=== PATIENT | female | born 1990 | race Caucasian/White ===

== ENCOUNTER 2017-02-15 13:40 | Observation (INO) | payer OTHER ==
[~2017-02-15] VITALS: Ht 167.6 cm; Wt 81.6 kg
[2017-02-15] MEDS ORDERED: IV NORMAL SALINE 1000ML BAG 1,000 ML IV SCH (14:16)
[2017-02-15] MEDS ORDERED: FAMOTIDINE 20 MG/2 ML VIAL IVP ONE (14:30)
[2017-02-15] MEDS ORDERED: LIDO:MAALOX:DONNATAL 1:1:1 15 ML SINGLE DOSE SWSW ONE (14:30)
[2017-02-15] MEDS ORDERED: ONDANSETRON PF 4 MG/2 ML VIAL. IV ONE (14:30)
[2017-02-15] MEDS ORDERED: MORPHINE SULFATE 4 MG/ML DISP.SYRIN. IV ONE (14:30)
[2017-02-15 14:33] LABS: BILIRUBIN,URINE NEGATIVE (NEG); GLUCOSE,URINE NEGATIVE (NEG); NITRITE,URINE NEGATIVE (NEG); PH,URINE 6.5; PROTEIN,URINE 30 mg/dL (NEG-TRACE)
[2017-02-15 14:35] LABS: BASO % 0 % (0-3); EOS % 3 % (0-3); HEMATOCRIT 37.7 % (36.0-47.0); HEMOGLOBIN 12.2 g/dL (12.0-15.5); LYMPH # 1.6 x10^3/uL (1.0-4.8); LYMPH % 27 % (24-48); MEAN CORPUSCULAR HEMOGLOBIN 25 pg (25-35); MEAN CORPUSCULAR HGB CONC 32 g/dL (31-37); MEAN CORPUSCULAR VOLUME 76 fL (79-100); MONO % 10 % (0-9); NEUT % 60 % (31-73); PLATELET COUNT 265 x10^3/uL (140-400); RED BLOOD COUNT 4.98 x10^6/uL (3.50-5.40); RED CELL DISTRIBUTION WIDTH 14.3 % (11.5-14.5); WHITE BLOOD COUNT 5.9 x10^3/uL (4.0-11.0)
[2017-02-15 14:36] LABS: BACTERIA,URINE 0 /HPF (0-FEW); RBC,URINE TNTC /HPF (0-2); SQUAMOUS EPITHELIAL CELL,UR MOD /LPF; WBC,URINE 20-40 /HPF (0-4)
[2017-02-15 14:43] LABS: CALCIUM 8.5 mg/dL (8.5-10.1); CREATININE 0.7 mg/dL (0.6-1.0); GFR 101.1; POTASSIUM 3.3 mmol/L (3.5-5.1)
[2017-02-15 14:50] LABS: ALBUMIN 3.1 g/dL (3.4-5.0); ALBUMIN/GLOBULIN RATIO 0.8 (1.0-1.7); TOTAL BILIRUBIN 0.3 mg/dL (0.2-1.0)
[2017-02-15 14:57] LABS: NEG OBC UR NEG; POS OBC UR POS
--- NOTE | 2017-02-15 15:54 | PHYS DOC ---
Past Medical History Past Medical History: Asthma Past Surgical History: Cholecystectomy, Tubal ligation Alcohol Use: Occasionally Drug Use: None Adult General Chief Complaint Chief Complaint: ABDOMINAL PAIN HPI HPI Patient is a 26 year old female who presents with abdominal pain. Patient states that for the past 6 days she has been having LUQ pain. The pain is accompanied by nausea and decreased appetite. The pain is now radiating to her back. No clear inciting or mitigating factors. Patient was seen at [facility] a few days ago for same; at that time she underwent workup including labs and CTA chest (patient had elevated d-dimer) that did not show cause for pain. She has been taking hydrocodone and zofran that she was prescribed with insufficient relief. No other acute complaints. Patient is on her menstrual cycle. Review of Systems Review of Systems Constitutional: Denies fever or chills Eyes: Denies change in visual acuity or eye pain HENT: Denies nasal congestion or sore throat Respiratory: Denies cough or shortness of breath Cardiovascular: Denies chest pain GI: LUQ abdominal pain, nausea, decreased appetite. Denies vomiting, bloody stools or diarrhea : Denies dysuria or hematuria Musculoskeletal: Denies extremity or joint pain Integument: Denies rash or skin lesions Neurologic: Denies headache, focal weakness or sensory changes Current Medications Current Medications Current Medications Medications (Trade) Dose Ordered Sig/Ada Start Time Stop Time Status Last Admin Dose Admin Famotidine (Pepcid) 20 mg 1X ONCE 02/15/17 14:30 02/15/17 14:31 DC 02/15/17 14:37 20 MG Morphine Sulfate 4 mg 1X ONCE 02/15/17 14:30 02/15/17 14:31 DC 02/15/17 14:38 4 MG Multi-Ingredient Mouthwash/Gargle 15 ml 15 ml 1X ONCE 02/15/17 14:30 02/15/17 14:31 DC 02/15/17 14:50 15 ML Ondansetron HCl (Zofran) 4 mg 1X ONCE 02/15/17 14:30 02/15/17 14:31 DC 02/15/17 14:38 4 MG Sodium Chloride (Iv Sodium Chloride 0.9% 1000ml Bag) 1,000 ml @ 1,000 mls/hr Q1H 02/15/17 14:16 02/15/17 15:15 DC 02/15/17 14:36 1,000 MLS/HR Allergies Allergies Allergies Coded Allergies Type Severity Reaction Last Updated Verified tramadol Allergy Unknown Itching 02/15/17 Yes Physical Exam Physical Exam Constitutional: Well developed, well nourished, no acute distress, non-toxic appearance Cardiovascular: Heart rate normal, regular rhythm, no murmur Lungs & Thorax: Bilateral breath sounds clear to auscultation Abdomen: Bowel sounds normal, soft, non-distended, LUQ TTP without guarding or rebound Skin: Warm, dry, no erythema, no rash Back: Minimal L CVA tenderness Extremities: No obvious deformity, no edema Neurologic: Alert and oriented X 3, no gross deficits noted Current Patient Data Vital Signs Vital Signs Date Time Temp Pulse Resp B/P Pulse Ox O2 Delivery O2 Flow Rate FiO2 02/15/17 16:20 85 16 110/71 98 Room Air 02/15/17 13:50 98.1 98.1 Lab Values Laboratory Tests Test 02/15/17 13:50 02/15/17 14:20 Urine Collection Type Unknown Urine Color Yellow Urine Clarity Clear Urine pH 6.5 Urine Specific [place] <=1.005 Urine Protein 30mg/dL (NEG-TRACE) Urine Glucose (UA) Negativemg/dL (NEG) Urine Ketones (Stick) Negativemg/dL (NEG) Urine Blood Large (NEG) Urine Nitrite Negative (NEG) Urine Bilirubin Negative (NEG) Urine Urobilinogen Dipstick 1.0mg/dL (0.2 mg/dL) Urine Leukocyte Esterase Trace (NEG) Urine RBC Tntc/HPF (0-2) Urine WBC 20-40/HPF (0-4) Urine Squamous Epithelial Cells Mod/LPF Urine Bacteria 0/HPF (0-FEW) Urine Mucus Slight/LPF Urine Test Negative (NEG) White Blood Count 5.9x10^3/uL (4.0-11.0) Red Blood Count 4.98x10^6/uL (3.50-5.40) Hemoglobin 12.2g/dL (12.0-15.5) Hematocrit 37.7% (36.0-47.0) Mean Corpuscular Volume 76fL (79-100) L Mean Corpuscular Hemoglobin 25pg (25-35) Mean Corpuscular Hemoglobin Concent 32g/dL (31-37) Red Cell Distribution Width 14.3% (11.5-14.5) Platelet Count 265x10^3/uL (140-400) Neutrophils (%) (Auto) 60% (31-73) Lymphocytes (%) (Auto) 27% (24-48) Monocytes (%) (Auto) 10% (0-9) H Eosinophils (%) (Auto) 3% (0-3) Basophils (%) (Auto) 0% (0-3) Neutrophils # (Auto) 3.5x10^3uL (1.8-7.7) Lymphocytes # (Auto) 1.6x10^3/uL (1.0-4.8) Monocytes # (Auto) 0.6x10^3/uL (0.0-1.1) Eosinophils # (Auto) 0.2x10^3/uL (0.0-0.7) Basophils # (Auto) 0.0x10^3/uL (0.0-0.2) Sodium Level 144mmol/L (136-145) Potassium Level 3.3mmol/L (3.5-5.1) L Chloride Level 105mmol/L (98-107) Carbon Dioxide Level 28mmol/L (21-32) Anion Gap 11 (6-14) Blood Urea Nitrogen 4mg/dL (7-20) L Creatinine 0.7mg/dL (0.6-1.0) Estimated GFR (Cockcroft-Gault) 101.1 BUN/Creatinine Ratio 6 (6-20) Glucose Level 97mg/dL (70-99) Calcium Level 8.5mg/dL (8.5-10.1) Total Bilirubin 0.3mg/dL (0.2-1.0) Aspartate Amino Transferase (AST) 17U/L (15-37) Alanine Aminotransferase (ALT) 20U/L (14-59) Alkaline Phosphatase 74U/L (46-116) Total Protein 7.0g/dL (6.4-8.2) Albumin 3.1g/dL (3.4-5.0) L Albumin/Globulin Ratio 0.8 (1.0-1.7) L Lipase 138U/L (73-393) Laboratory Tests 02/15/17 14:20 Laboratory Tests 02/15/17 14:20 EKG EKG [] Radiology/Procedures Radiology/Procedures CT A/P: IMPRESSION 1. No evidence of urolithiasis or urinary tract obstruction. 2. Mild distention or wall thickening of the appendix, but without periappendiceal inflammation or fluid. Significance is uncertain, particularly considering the symptoms are on the left, but mild or early appendicitis should still be considered. Findings discussed with Dr. Madhuri Callaway at 1730 hours on February 15, 2017. Course & Med Decision Making Course & Med Decision Making Pertinent Labs and Imaging studies reviewed. (See chart for details) Patient is 26 year old female who presents with LUQ pain. Suspect gastritis vs PUD. Labs, UA ordered to evaluate. IV fluid bolus, pain meds, nausea meds, GI cocktail ordered for relief of symptoms. Labs unremarkable. UA with blood ( patient on menstrual cycle) as well as WBCs without bacteria. CT A/P ordered to r/o stone. No stone seen, however I received call from radiologist re: abnormal appearance of appendix. Discussed results with patient, who continues to have LUQ pain. Repeat abdominal examination shows no RLQ tenderness. Relatively low suspicion for acute pathology involving appendix given lack of leukocytosis and lack of tenderness in RLQ, however I did speak with Dr. Reina (diamond die polisher surgeon ) about the abnormal CT scan. I went back to discuss plan with patient; she is uncomfortable going home so we will admit her under the care of Dr. Reina with plan to be NPO at midnight. repeat labs in the morning, and evaluation by Dr. Reina in the morning. Admission orders entered. Dragon Disclaimer Dragon Disclaimer This electronic medical record was generated, in whole or in part, using a voice recognition dictation system. Departure Departure Impression: Primary Impression: LUQ abdominal pain Disposition: ADMITTED INPATIENT Admitting Physician: Other Condition: STABLE Referrals: NO PCP (PCP) MADHURI CALLAWAY MD Feb 15, 2017 15:54
--- NOTE | 2017-02-15 17:36 | RAD ---
PROCEDURE CT of the abdomen and pelvis without contrast HISTORY Left flank pain. Left abdomen pain for 7 days. COMPARISON None TECHNIQUE Standard noncontrast images are obtained. Exposure: One or more of the following individualized dose reduction techniques were utilized for this exam: 1. Automated exposure control. 2. Adjustment of the mA and/or kV according to patient size. 3. Use of iterative reconstruction technique. FINDINGS Lung bases are clear. No evidence of left hydronephrosis or left urolithiasis. No evidence of right hydronephrosis or urolithiasis. Examination of solid viscera, GI tract and vascular structures is compromised by the noncontrast technique. Liver grossly unremarkable. Spleen is enlarged measuring 14 cm. Pancreas unremarkable. No evidence of adrenal mass. Kidneys are unremarkable. Gallbladder surgically absent. No aortic aneurysm No significant lymph node enlargement. No bowel obstruction identified. No evidence of pericolonic inflammation. The appendix is mildly distended and either thick-walled or fluid-filled. No gas identified within the lumen. Appendix measures about 9 millimeters transverse. However there is no evidence of periappendiceal inflammatory stranding or fluid. No ascites. Urinary bladder is collapsed. IMPRESSION 1. No evidence of urolithiasis or urinary tract obstruction. 2. Mild distention or wall thickening of the appendix, but without periappendiceal inflammation or fluid. Significance is uncertain, particularly considering the symptoms are on the left, but mild or early appendicitis should still be considered. Findings discussed with Dr. Oswaldo Londono at 1730 hours on February 15, 2017. Electronically signed by: Bakari Quiles MD (Feb 15, 2017 17:35:00)
[2017-02-15] MEDS ORDERED: ACETAMINOPHEN 325 MG TABLET. PO PRN (18:15)
[2017-02-15] MEDS: IV NORMAL SALINE 1000ML BAG 1,000 ML IV SCH ×2 (18:30→19:58)
[2017-02-15] MEDS: ONDANSETRON PF 4 MG/2 ML VIAL. IV PRN (18:30)
[2017-02-15] MEDS: MORPHINE SULFATE 2 MG/ML DISP.SYRIN. IV PRN ×2 (18:33→20:58)
[2017-02-15 19:40] VITALS: BP 109/61
[2017-02-15 23:00] VITALS: BP 100/60
[2017-02-16] VITALS (10 sets, daily range): BP systolic 102–109; BP diastolic 57–73
[2017-02-16] MEDS: ONDANSETRON PF 4 MG/2 ML VIAL. IV PRN ×2 (03:09→08:39)
[2017-02-16] MEDS: IV NORMAL SALINE 1000ML BAG 1,000 ML IV SCH (03:12)
[2017-02-16 05:35] LABS: BASO % 0 % (0-3); EOS % 4 % (0-3); HEMATOCRIT 31.1 % (36.0-47.0); HEMOGLOBIN 10.1 g/dL (12.0-15.5); LYMPH # 1.4 x10^3/uL (1.0-4.8); LYMPH % 35 % (24-48); MEAN CORPUSCULAR HEMOGLOBIN 25 pg (25-35); MEAN CORPUSCULAR HGB CONC 32 g/dL (31-37); MEAN CORPUSCULAR VOLUME 76 fL (79-100); MONO % 11 % (0-9); NEUT % 50 % (31-73); PLATELET COUNT 195 x10^3/uL (140-400); RED BLOOD COUNT 4.09 x10^6/uL (3.50-5.40); RED CELL DISTRIBUTION WIDTH 14.1 % (11.5-14.5); WHITE BLOOD COUNT 4.1 x10^3/uL (4.0-11.0)
[2017-02-16 05:50] LABS: ALBUMIN 2.4 g/dL (3.4-5.0); ALBUMIN/GLOBULIN RATIO 0.8 (1.0-1.7); CALCIUM 7.5 mg/dL (8.5-10.1); CREATININE 0.7 mg/dL (0.6-1.0); GFR 101.1; TOTAL BILIRUBIN 0.3 mg/dL (0.2-1.0); TOTAL PROTEIN 5.5 g/dL (6.4-8.2)
--- NOTE | 2017-02-16 08:12 | PDOC1 ---
MIRTHA VILLA POWER LINEMAN 02/16/17 0812: History and Physical Date of Admission Date of Admission DATE: 02/16/17 TIME: 08:04 Identification/Chief Complaint Chief Complaint LUQ abdominal pain Problems: Source Source: Chart review, Patient History of Present Illness History of Present Illness Reports a 6 day history of LUQ pain, associated nausea, loss of appetite. Pain is constant does not worsen with movement. Can not identify any aggravating or alleviating factors. Never had pain like this before. Last BM , was normal. Was seen in ER at [facility] few days ago with elevated D dimer, however work up was negative and discharged home Past Medical History Pulmonary: Asthma Past Surgical History Past Surgical History: Cholecystectomy Family History Family History: Depression, Hypertension Social History Smoke: No ALCOHOL: occassional Drugs: None Current Problem List Problem List Problems Medical Problems: (1) LUQ abdominal pain Status: Acute Problems: Current Medications Current Medications Current Medications Multi-Ingredient Mouthwash/Gargle 15 ml 15 ml 1X ONCE SWSW Last administered on 02/15/17 14:50; Start 02/15/17 at 14:30; Stop 02/15/17 at 14:31; Status DC Sodium Chloride (Iv Sodium Chloride 0.9% 1000ml Bag) 1,000 ml @ 1,000 mls/hr Q1H IV Last administered on 02/15/17 14:36; Start 02/15/17 at 14:16; Stop at 15:15; Status DC Ondansetron HCl (Zofran) 4 mg 1X ONCE IV Last administered on 02/15/17 14:38 ; Start 02/15/17 at 14:30; Stop 02/15/17 at 14:31; Status DC Famotidine (Pepcid) 20 mg 1X ONCE IVP Last administered on 02/15/17 14:37; Start 02/15/17 at 14:30; Stop 02/15/17 at 14:31; Status DC Morphine Sulfate 4 mg 1X ONCE IV Last administered on 02/15/17 14:38; Start 02/15/17 at 14:30; Stop 02/15/17 at 14:31; Status DC Ondansetron HCl (Zofran) 4 mg PRN Q8HRS PRN IV NAUSEA/VOMITING Last administered on 02/16/17 03:09; Start 02/15/17 at 18:15; Stop 02/16/17 at 18:14 Morphine Sulfate 2 mg 2 mg PRN Q2HR PRN IV PAIN Last administered on 02/15/17 20:58; Start 02/15/17 at 18:15; Stop 02/16/17 at 18:14 Sodium Chloride (Iv Sodium Chloride 0.9% 1000ml Bag) 1,000 ml @ 125 mls/hr Q8H IV Last administered on 02/16/17 03:12; Start 02/15/17 at 18:08; Stop at 18:07 Acetaminophen (Tylenol) 650 mg PRN Q4HRS PRN PO FEVER; Start 02/15/17 at 18:15 ; Stop 02/16/17 at 18:14 Allergies Allergies: Coded Allergies: tramadol (Verified Allergy, Intermediate, Itching, 02/16/17) ROS General: YES: Chills, No: Other (fevers) PSYCHOLOGICAL ROS: No: Anxiety, Depression Eyes: No Blurry vision, No Double vision HEENT: No: Heacaches, Sore Throat Hematological and Lymphatic: No: Bleeding Problems, Blood Clots Respiratory: No: Cough, Shortness of breath Cardiovascular: No Chest Pain Gastrointestinal: Yes Other (see hpi) Genitourinary: No Dysuria, No Hematuria Musculoskeletal: No Joint Pain, No Muscle Pain Neurological: No Impaired Coord/balance, No Numbness/Tingling Skin: No Pruritus, No Rash Physical Exam General: Alert, Oriented X3, Cooperative, No acute distress HEENT: PERRLA Lungs: Clear to auscultation, Normal air movement Heart: S1S2, RRR Abdomen: Soft, Other (tenderness to LUQ and RLQ, no rebound tenderness ) Extremities: No clubbing, No cyanosis Skin: No rashes, No breakdown Neuro: Normal speech, Cranial nerves 3-12 NL Psych/Mental Status: Mental status NL, Mood NL Vitals Vitals Vital Signs Date Time Temp Pulse Resp B/P Pulse Ox O2 Delivery O2 Flow Rate FiO2 02/16/17 03:00 97.3 88 18 103/57 97 Room Air 97.3 Labs Labs Laboratory Tests Test 02/15/17 13:50 02/15/17 14:20 02/16/17 04:38 Urine Collection Type Unknown Urine Color Yellow Urine Clarity Clear Urine pH 6.5 Urine Specific [place] <=1.005 Urine Protein 30mg/dL (NEG-TRACE) Urine Glucose (UA) Negativemg/dL (NEG) Urine Ketones (Stick) Negativemg/dL (NEG) Urine Blood Large (NEG) Urine Nitrite Negative (NEG) Urine Bilirubin Negative (NEG) Urine Urobilinogen Dipstick 1.0mg/dL (0.2 mg/dL) Urine Leukocyte Esterase Trace (NEG) Urine RBC Tntc/HPF (0-2) Urine WBC 20-40/HPF (0-4) Urine Squamous Epithelial Cells Mod/LPF Urine Bacteria 0/HPF (0-FEW) Urine Mucus Slight/LPF Urine Test Negative (NEG) White Blood Count 5.9x10^3/uL (4.0-11.0) 4.1x10^3/uL (4.0-11.0) Red Blood Count 4.98x10^6/uL (3.50-5.40) 4.09x10^6/uL (3.50-5.40) Hemoglobin 12.2g/dL (12.0-15.5) 10.1g/dL (12.0-15.5) Hematocrit 37.7% (36.0-47.0) 31.1% (36.0-47.0) Mean Corpuscular Volume 76fL (79-100) 76fL (79-100) Mean Corpuscular Hemoglobin 25pg (25-35) 25pg (25-35) Mean Corpuscular Hemoglobin Concent 32g/dL (31-37) 32g/dL (31-37) Red Cell Distribution Width 14.3% (11.5-14.5) 14.1% (11.5-14.5) Platelet Count 265x10^3/uL (140-400) 195x10^3/uL (140-400) Neutrophils (%) (Auto) 60% (31-73) 50% (31-73) Lymphocytes (%) (Auto) 27% (24-48) 35% (24-48) Monocytes (%) (Auto) 10% (0-9) 11% (0-9) Eosinophils (%) (Auto) 3% (0-3) 4% (0-3) Basophils (%) (Auto) 0% (0-3) 0% (0-3) Neutrophils # (Auto) 3.5x10^3uL (1.8-7.7) 2.1x10^3uL (1.8-7.7) Lymphocytes # (Auto) 1.6x10^3/uL (1.0-4.8) 1.4x10^3/uL (1.0-4.8) Monocytes # (Auto) 0.6x10^3/uL (0.0-1.1) 0.5x10^3/uL (0.0-1.1) Eosinophils # (Auto) 0.2x10^3/uL (0.0-0.7) 0.1x10^3/uL (0.0-0.7) Basophils # (Auto) 0.0x10^3/uL (0.0-0.2) 0.0x10^3/uL (0.0-0.2) Sodium Level 144mmol/L (136-145) 145mmol/L (136-145) Potassium Level 3.3mmol/L (3.5-5.1) 3.0mmol/L (3.5-5.1) Chloride Level 105mmol/L (98-107) 108mmol/L (98-107) Carbon Dioxide Level 28mmol/L (21-32) 26mmol/L (21-32) Anion Gap 11 (6-14) 11 (6-14) Blood Urea Nitrogen 4mg/dL (7-20) 4mg/dL (7-20) Creatinine 0.7mg/dL (0.6-1.0) 0.7mg/dL (0.6-1.0) Estimated GFR (Cockcroft-Gault) 101.1 101.1 BUN/Creatinine Ratio 6 (6-20) 6 (6-20) Glucose Level 97mg/dL (70-99) 95mg/dL (70-99) Calcium Level 8.5mg/dL (8.5-10.1) 7.5mg/dL (8.5-10.1) Total Bilirubin 0.3mg/dL (0.2-1.0) 0.3mg/dL (0.2-1.0) Aspartate Amino Transf (AST/SGOT) 17U/L (15-37) 45U/L (15-37) Alanine Aminotransferase (ALT/SGPT) 20U/L (14-59) 48U/L (14-59) Alkaline Phosphatase 74U/L (46-116) 75U/L (46-116) Total Protein 7.0g/dL (6.4-8.2) 5.5g/dL (6.4-8.2) Albumin 3.1g/dL (3.4-5.0) 2.4g/dL (3.4-5.0) Albumin/Globulin Ratio 0.8 (1.0-1.7) 0.8 (1.0-1.7) Lipase 138U/L (73-393) Laboratory Tests Test 02/15/17 13:50 02/15/17 14:20 02/16/17 04:38 Urine Collection Type Unknown Urine Color Yellow Urine Clarity Clear Urine pH 6.5 Urine Specific [place] <=1.005 Urine Protein 30mg/dL (NEG-TRACE) Urine Glucose (UA) Negativemg/dL (NEG) Urine Ketones (Stick) Negativemg/dL (NEG) Urine Blood Large (NEG) Urine Nitrite Negative (NEG) Urine Bilirubin Negative (NEG) Urine Urobilinogen Dipstick 1.0mg/dL (0.2 mg/dL) Urine Leukocyte Esterase Trace (NEG) Urine RBC Tntc/HPF (0-2) Urine WBC 20-40/HPF (0-4) Urine Squamous Epithelial Cells Mod/LPF Urine Bacteria 0/HPF (0-FEW) Urine Mucus Slight/LPF Urine Test Negative (NEG) White Blood Count 5.9x10^3/uL (4.0-11.0) 4.1x10^3/uL (4.0-11.0) Red Blood Count 4.98x10^6/uL (3.50-5.40) 4.09x10^6/uL (3.50-5.40) Hemoglobin 12.2g/dL (12.0-15.5) 10.1g/dL (12.0-15.5) Hematocrit 37.7% (36.0-47.0) 31.1% (36.0-47.0) Mean Corpuscular Volume 76fL (79-100) 76fL (79-100) Mean Corpuscular Hemoglobin 25pg (25-35) 25pg (25-35) Mean Corpuscular Hemoglobin Concent 32g/dL (31-37) 32g/dL (31-37) Red Cell Distribution Width 14.3% (11.5-14.5) 14.1% (11.5-14.5) Platelet Count 265x10^3/uL (140-400) 195x10^3/uL (140-400) Neutrophils (%) (Auto) 60% (31-73) 50% (31-73) Lymphocytes (%) (Auto) 27% (24-48) 35% (24-48) Monocytes (%) (Auto) 10% (0-9) 11% (0-9) Eosinophils (%) (Auto) 3% (0-3) 4% (0-3) Basophils (%) (Auto) 0% (0-3) 0% (0-3) Neutrophils # (Auto) 3.5x10^3uL (1.8-7.7) 2.1x10^3uL (1.8-7.7) Lymphocytes # (Auto) 1.6x10^3/uL (1.0-4.8) 1.4x10^3/uL (1.0-4.8) Monocytes # (Auto) 0.6x10^3/uL (0.0-1.1) 0.5x10^3/uL (0.0-1.1) Eosinophils # (Auto) 0.2x10^3/uL (0.0-0.7) 0.1x10^3/uL (0.0-0.7) Basophils # (Auto) 0.0x10^3/uL (0.0-0.2) 0.0x10^3/uL (0.0-0.2) Sodium Level 144mmol/L (136-145) 145mmol/L (136-145) Potassium Level 3.3mmol/L (3.5-5.1) 3.0mmol/L (3.5-5.1) Chloride Level 105mmol/L (98-107) 108mmol/L (98-107) Carbon Dioxide Level 28mmol/L (21-32) 26mmol/L (21-32) Anion Gap 11 (6-14) 11 (6-14) Blood Urea Nitrogen 4mg/dL (7-20) 4mg/dL (7-20) Creatinine 0.7mg/dL (0.6-1.0) 0.7mg/dL (0.6-1.0) Estimated GFR (Cockcroft-Gault) 101.1 101.1 BUN/Creatinine Ratio 6 (6-20) 6 (6-20) Glucose Level 97mg/dL (70-99) 95mg/dL (70-99) Calcium Level 8.5mg/dL (8.5-10.1) 7.5mg/dL (8.5-10.1) Total Bilirubin 0.3mg/dL (0.2-1.0) 0.3mg/dL (0.2-1.0) Aspartate Amino Transf (AST/SGOT) 17U/L (15-37) 45U/L (15-37) Alanine Aminotransferase (ALT/SGPT) 20U/L (14-59) 48U/L (14-59) Alkaline Phosphatase 74U/L (46-116) 75U/L (46-116) Total Protein 7.0g/dL (6.4-8.2) 5.5g/dL (6.4-8.2) Albumin 3.1g/dL (3.4-5.0) 2.4g/dL (3.4-5.0) Albumin/Globulin Ratio 0.8 (1.0-1.7) 0.8 (1.0-1.7) Lipase 138U/L (73-393) Images Images CT without contrast viewed VTE Prophylaxis Ordered VTE Prophylaxis Devices: Yes VTE Pharmacological Prophylaxi: Contraindicated Assessment/Plan Assessment/Plan LUQ pain, RLQ--CT concern for early acute appendicitis, however symptoms have been ongoing for a week, wbc normal hypokalemia--ordered 20 meq KCL IV replacement NPO will review with YVROSE Jimenez MD 02/16/17 1124: History and Physical Allergies Allergies: Coded Allergies: tramadol (Verified Allergy, Intermediate, Itching, 02/16/17) Assessment/Plan Assessment/Plan pt seen, interviewed and examined I explained to her that removing her appendix may not resolve all her abdominal complaints. Risks, including but not limited to bleeding, infection, injury to bowel, bladder, pelvic organs, possible need for an "open" procedure were all discussed. She would like to proceed. MIRTHA VILLA POWER LINEMAN Feb 16, 2017 08:12 YVROSE MALAGON MD Feb 16, 2017 11:24
[2017-02-16] MEDS ORDERED: PROMETHAZINE 25 MG SUPP.RECT. PR PRN (08:30)
[2017-02-16] MEDS: POTASSIUM CHLORIDE 10MEQ 100 ML IV SCH ×2 (08:39→09:15)
[2017-02-16] MEDS: MORPHINE SULFATE 2 MG/ML DISP.SYRIN. IV PRN (10:21)
[2017-02-16] MEDS ORDERED: CEFOXITIN SODIUM 2 GM in IV NORMAL SALINE 100ML 100 ML IV ONE (11:30)
[2017-02-16] MEDS ORDERED: IV RINGERS,LACTATED 1000ML 1,000 ML IV SCH (11:34)
[2017-02-16] MEDS ORDERED: ONDANSETRON PF 4 MG/2 ML VIAL. IV PRN ×2 (11:45→17:45)
[2017-02-16] MEDS ORDERED: LIDOCAINE 1% 1 ML SYRINGE. ID PRN (11:45)
[2017-02-16] MEDS ORDERED: FENTANYL PF 100 MCG/2 ML VIAL. IV PRN (11:45)
[2017-02-16] MEDS ORDERED: PROCHLORPERAZINE 10 MG/2 ML VIAL. IV PRN (11:45)
[2017-02-16] MEDS ORDERED: GLYCOPYRROLATE 1 MG/5 ML VIAL. ONE (13:39)
[2017-02-16] MEDS ORDERED: DESFLURANE 61 TO 120 MINUTES IH ONE (13:39)
[2017-02-16] MEDS ORDERED: MIDAZOLAM HCL/PF 2 MG/2 ML VIAL. ONE (13:39)
[2017-02-16] MEDS ORDERED: FENTANYL PF 100 MCG/2 ML VIAL. ONE (13:39)
[2017-02-16] MEDS ORDERED: ROCURONIUM 50 MG/5 ML VIAL. ONE (13:40)
[2017-02-16] MEDS ORDERED: NEOSTIGMINE METHYLSULFATE 5 MG/5 ML SYRINGE. ONE (13:40)
[2017-02-16] MEDS ORDERED: SUCCINYLCHOLINE 200 MG/10 ML VIAL. ONE (13:40)
[2017-02-16] MEDS ORDERED: LIDOCAINE 2% 100 MG/5 ML SYRINGE. ONE (13:41)
[2017-02-16] MEDS ORDERED: DEXAMETHASONE SOD PHOS 20 MG/5 ML VIAL. ONE (13:41)
[2017-02-16] MEDS ORDERED: PROPOFOL 20 ML IV ONE (13:41)
[2017-02-16] MEDS ORDERED: ONDANSETRON PF 4 MG/2 ML VIAL. ONE (13:42)
[2017-02-16] MEDS ORDERED: KETOROLAC 30 MG/ML INJ FOR OR. INJ ONE (13:42)
[2017-02-16] MEDS ORDERED: CEFOXITIN 2GM IVPB FOR OMNI 100 ML IV ONE (14:28)
[2017-02-16] MEDS ORDERED: FAMOTIDINE 20 MG/2 ML VIAL ONE (16:37)
[2017-02-16] MEDS ORDERED: ACETAMINOPHEN INTRAVENOUS 100 ML IV ONE (17:32)
[2017-02-16] MEDS ORDERED: POTASSIUM CL 20MEQ-0.45% NACL 1,000 ML IV SCH (17:38)
--- NOTE | 2017-02-16 17:42 | PDOC ---
BRIEF OPERATIVE NOTE Date: Feb 16, 2017 Pre-Op Diagnosis acute appendicitis Post-Op Diagnosis same Procedure Performed l/s appendectomy Surgeon Nuno Anesthesia Type: General Blood Loss 10cc IV Fluid 800cc Urine Output 100cc Specimens Obtained appendix Findings acute appendicitis Complications none YVROSE MALAGON MD Feb 16, 2017 5:42 pm
[2017-02-16] MEDS ORDERED: 0.9 % SODIUM CHLORIDE 10 ML DISP.SYRIN. IV PRN (17:45)
[2017-02-16] MEDS ORDERED: DEXTROSE 50% 25 GM / 50ML DISP.SYRIN. IV PRN (17:45)
[2017-02-16] MEDS ORDERED: HYDROMORPHONE 2 MG/ML VIAL. IV PRN (17:45)
[2017-02-16] MEDS: FENTANYL PF 100 MCG/2 ML VIAL. IV PRN ×3 (17:47→18:38)
[2017-02-16] MEDS ORDERED: ENOXAPARIN 40 MG/0.4 ML SYRINGE. SQ SCH (18:00)
[2017-02-16] MEDS: DIPHENHYDRAMINE 50 MG/ML VIAL. IV PRN (18:47)
--- NOTE | 2017-02-16 19:52 | OP ---
DATE OF SURGERY: 02/16/2017 PREOPERATIVE DIAGNOSIS: Acute appendicitis. POSTOPERATIVE DIAGNOSIS: Acute appendicitis. PROCEDURE: Laparoscopic appendectomy. SURGEON: Yvrose Malagon M.D. ANESTHESIA: General endotracheal. ESTIMATED BLOOD LOSS: 10 mL. IV FLUID: 800 mL. URINE OUTPUT: 100 mL. INDICATIONS: The patient is a 26-year-old with abdominal pain and a CT suggesting changes in her appendix. She is brought for appendectomy. OPERATIVE FINDINGS: She did indeed have, what appeared to be, an elderly acute appendicitis without rupture. Bilateral ovarian cystic changes were present, right greater than left. Gallbladder was surgically absent. The spleen was somewhat prominent. No other abnormalities were seen. DESCRIPTION OF PROCEDURE: The patient brought to the operating suite, given a general endotracheal anesthetic, Jiménez catheter placement and drainage. The abdomen prepped and draped in usual sterile fashion. An infraumbilical incision was made and a 5-mm Visiport used to gain access into the abdominal cavity, taking care to avoid injury to abdominal contents. Pneumoperitoneum was established. Camera inserted and inspection carried out with results as noted above. With the table rolled to the left in slight Trendelenburg, the suprapubic and left lower quadrant ports were placed under direct vision. The umbilical port was converted to 12 mm for instrumentation. The appendix was grasped through the suprapubic port and a small rent created at the base of the appendix to allow passage of the Endo MARINA. The appendiceal stump was amputated with a tissue load. Medium large clip used to augment hemostasis. The mesoappendix was then divided with a vascular load of the Endo MARINA. Again, medium large clips were used to augment hemostasis. Intra-abdominal pressure decreased to 6 cm of water. No bleeding from the appendiceal stump or from the mesoappendix was seen. Table returned to level. Appendix delivered through the umbilical incision. Umbilical incision closed with interrupted 0 Vicryl suture. Again, a 6 cm of water. No bleeding from the umbilical closure or from the left lower quadrant port site after its removal. Abdomen decompressed, camera slowly removed, no bleeding seen. Skin incisions closed with interrupted 5-0 nylon sutures. Sterile dressings applied. Jiménez catheter removed. The patient was awakened from her anesthetic and taken to the recovery room in satisfactory condition. YVROSE MALAGON MD DR: Marla JOB#: [id number] / [id number]
[2017-02-16] MEDS: DOCUSATE SODIUM 100 MG CAPSULE. PO SCH (21:52)
[2017-02-16] MEDS: OXYCODONE/APAP 5/325 TABLET. PO PRN ×2 (21:52→22:40)
[2017-02-17 03:07] VITALS: BP 103/62
[2017-02-17] MEDS: OXYCODONE/APAP 5/325 TABLET. PO PRN ×4 (06:17→20:25)
[2017-02-17 07:00] VITALS: BP 97/62
[2017-02-17] MEDS: ONDANSETRON PF 4 MG/2 ML VIAL. IV PRN ×2 (08:10→15:17)
[2017-02-17] MEDS: DOCUSATE SODIUM 100 MG CAPSULE. PO SCH ×2 (08:25→20:25)
[2017-02-17] MEDS: ENOXAPARIN 40 MG/0.4 ML SYRINGE. SQ SCH (08:26)
[2017-02-17] MEDS: DIPHENHYDRAMINE 50 MG/ML VIAL. IV PRN (09:49)
[2017-02-17 11:00] VITALS: BP 103/70
--- NOTE | 2017-02-17 11:32 | PDOC ---
SURGICAL PROGRESS NOTE Subjective some nausea, lightheaded incisional pain voiding ok Vital Signs Vital Signs Date Time Temp Pulse Resp B/P Pulse Ox O2 Delivery O2 Flow Rate FiO2 02/17/17 11:00 97.9 63 18 103/70 96 Room Air 97.9 02/16/17 18:03 8.0 I&O Intake and Output 02/17/17 07:00 Intake Total 1625 ml Output Total 1761 ml Balance -136 ml Intake Oral 425 ml IV Total 1200 ml Output Urine Total 1751 ml Estimated Blood Loss 10 ml # Voids 2 General: Alert, Oriented X3, Cooperative, No acute distress Abdomen: Soft, Other (incisoinal pain, lap dressings dry ) Labs Laboratory Tests Test 02/15/17 13:50 02/15/17 14:20 02/16/17 04:38 Urine Collection Type Unknown Urine Color Yellow Urine Clarity Clear Urine pH 6.5 Urine Specific [place] <=1.005 Urine Protein 30mg/dL (NEG-TRACE) Urine Glucose (UA) Negativemg/dL (NEG) Urine Ketones (Stick) Negativemg/dL (NEG) Urine Blood Large (NEG) Urine Nitrite Negative (NEG) Urine Bilirubin Negative (NEG) Urine Urobilinogen Dipstick 1.0mg/dL (0.2 mg/dL) Urine Leukocyte Esterase Trace (NEG) Urine RBC Tntc/HPF (0-2) Urine WBC 20-40/HPF (0-4) Urine Squamous Epithelial Cells Mod/LPF Urine Bacteria 0/HPF (0-FEW) Urine Mucus Slight/LPF Urine Test Negative (NEG) White Blood Count 5.9x10^3/uL (4.0-11.0) 4.1x10^3/uL (4.0-11.0) Red Blood Count 4.98x10^6/uL (3.50-5.40) 4.09x10^6/uL (3.50-5.40) Hemoglobin 12.2g/dL (12.0-15.5) 10.1g/dL (12.0-15.5) Hematocrit 37.7% (36.0-47.0) 31.1% (36.0-47.0) Mean Corpuscular Volume 76fL (79-100) 76fL (79-100) Mean Corpuscular Hemoglobin 25pg (25-35) 25pg (25-35) Mean Corpuscular Hemoglobin Concent 32g/dL (31-37) 32g/dL (31-37) Red Cell Distribution Width 14.3% (11.5-14.5) 14.1% (11.5-14.5) Platelet Count 265x10^3/uL (140-400) 195x10^3/uL (140-400) Neutrophils (%) (Auto) 60% (31-73) 50% (31-73) Lymphocytes (%) (Auto) 27% (24-48) 35% (24-48) Monocytes (%) (Auto) 10% (0-9) 11% (0-9) Eosinophils (%) (Auto) 3% (0-3) 4% (0-3) Basophils (%) (Auto) 0% (0-3) 0% (0-3) Neutrophils # (Auto) 3.5x10^3uL (1.8-7.7) 2.1x10^3uL (1.8-7.7) Lymphocytes # (Auto) 1.6x10^3/uL (1.0-4.8) 1.4x10^3/uL (1.0-4.8) Monocytes # (Auto) 0.6x10^3/uL (0.0-1.1) 0.5x10^3/uL (0.0-1.1) Eosinophils # (Auto) 0.2x10^3/uL (0.0-0.7) 0.1x10^3/uL (0.0-0.7) Basophils # (Auto) 0.0x10^3/uL (0.0-0.2) 0.0x10^3/uL (0.0-0.2) Sodium Level 144mmol/L (136-145) 145mmol/L (136-145) Potassium Level 3.3mmol/L (3.5-5.1) 3.0mmol/L (3.5-5.1) Chloride Level 105mmol/L (98-107) 108mmol/L (98-107) Carbon Dioxide Level 28mmol/L (21-32) 26mmol/L (21-32) Anion Gap 11 (6-14) 11 (6-14) Blood Urea Nitrogen 4mg/dL (7-20) 4mg/dL (7-20) Creatinine 0.7mg/dL (0.6-1.0) 0.7mg/dL (0.6-1.0) Estimated GFR (Cockcroft-Gault) 101.1 101.1 BUN/Creatinine Ratio 6 (6-20) 6 (6-20) Glucose Level 97mg/dL (70-99) 95mg/dL (70-99) Calcium Level 8.5mg/dL (8.5-10.1) 7.5mg/dL (8.5-10.1) Total Bilirubin 0.3mg/dL (0.2-1.0) 0.3mg/dL (0.2-1.0) Aspartate Amino Transf (AST/SGOT) 17U/L (15-37) 45U/L (15-37) Alanine Aminotransferase (ALT/SGPT) 20U/L (14-59) 48U/L (14-59) Alkaline Phosphatase 74U/L (46-116) 75U/L (46-116) Total Protein 7.0g/dL (6.4-8.2) 5.5g/dL (6.4-8.2) Albumin 3.1g/dL (3.4-5.0) 2.4g/dL (3.4-5.0) Albumin/Globulin Ratio 0.8 (1.0-1.7) 0.8 (1.0-1.7) Lipase 138U/L (73-393) Problem List Problems Medical Problems: (1) Acute appendicitis Status: Acute (2) LUQ abdominal pain Status: Acute Assessment/Plan s/p lap appy dc home when ambulating, tolerating diet, pain controlled on oral meds 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
[2017-02-17 15:00] VITALS: BP 104/57
[2017-02-17 16:31] LABS: HEMOGLOBIN 11.2 g/dL (12.0-15.5); RED BLOOD COUNT 4.53 x10^6/uL (3.50-5.40); RED CELL DISTRIBUTION WIDTH 14.1 % (11.5-14.5); WHITE BLOOD COUNT 8.3 x10^3/uL (4.0-11.0)
[2017-02-17 19:48] VITALS: BP 101/61
[2017-02-17] MEDS: DIPHENHYDRAMINE HCL 25 MG CAPSULE PO PRN (20:25)
[2017-02-17] MEDS ORDERED: KETOROLAC TROMETHAMINE 30 MG/ML INJ. IV ONE (23:00)
[2017-02-17 23:04] VITALS: BP 104/60
[2017-02-18] VITALS (10 sets, daily range): BP systolic 89–112; BP diastolic 49–78
[2017-02-18] MEDS: DIPHENHYDRAMINE HCL 25 MG CAPSULE PO PRN ×2 (06:07→20:56)
[2017-02-18] MEDS: OXYCODONE/APAP 5/325 TABLET. PO PRN ×4 (06:08→23:21)
[2017-02-18] MEDS: ONDANSETRON PF 4 MG/2 ML VIAL. IV PRN (08:52)
[2017-02-18] MEDS: DOCUSATE SODIUM 100 MG CAPSULE. PO SCH ×2 (08:52→20:56)
[2017-02-18] MEDS: ENOXAPARIN 40 MG/0.4 ML SYRINGE. SQ SCH (08:53)
--- NOTE | 2017-02-18 11:50 | PDOC ---
SURGICAL PROGRESS NOTE Subjective nausea and dizziness only ambulating to bathroom no appetite Vital Signs Vital Signs Date Time Temp Pulse Resp B/P Pulse Ox O2 Delivery O2 Flow Rate FiO2 02/18/17 10:42 98.2 64 18 91/51 99 Room Air 98.2 02/17/17 13:00 8.0 I&O Intake and Output 02/18/17 07:00 Output Total 301 ml Balance -301 ml Output Urine Total 301 ml # Voids 2 General: Alert, Oriented X3, Cooperative, No acute distress Abdomen: Soft, Other (incisional TTP, lap sites c/d/i) Labs Laboratory Tests Test 02/17/17 16:15 White Blood Count 8.3x10^3/uL (4.0-11.0) Red Blood Count 4.53x10^6/uL (3.50-5.40) Hemoglobin 11.2g/dL (12.0-15.5) Hematocrit 34.0% (36.0-47.0) Mean Corpuscular Volume 75fL (79-100) Mean Corpuscular Hemoglobin 25pg (25-35) Mean Corpuscular Hemoglobin Concent 33g/dL (31-37) Red Cell Distribution Width 14.1% (11.5-14.5) Platelet Count 279x10^3/uL (140-400) Laboratory Tests Test 02/17/17 16:15 White Blood Count 8.3x10^3/uL (4.0-11.0) Red Blood Count 4.53x10^6/uL (3.50-5.40) Hemoglobin 11.2g/dL (12.0-15.5) Hematocrit 34.0% (36.0-47.0) Mean Corpuscular Volume 75fL (79-100) Mean Corpuscular Hemoglobin 25pg (25-35) Mean Corpuscular Hemoglobin Concent 33g/dL (31-37) Red Cell Distribution Width 14.1% (11.5-14.5) Platelet Count 279x10^3/uL (140-400) Problem List Problems Medical Problems: (1) Acute appendicitis Status: Acute (2) LUQ abdominal pain Status: Acute Assessment/Plan s/p lap appy h/h stable ambulate dc iv pain meds home if improved this afternoon 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
[2017-02-18] MEDS ORDERED: ONDA8TAB12 PO (11:53)
[2017-02-18] MEDS ORDERED: OXYC1TAB7 PO (11:53)
[2017-02-18] MEDS ORDERED: DOCU100C5 PO (11:53)
[2017-02-18] MEDS: ONDANSETRON ODT 4 MG TAB.RAPDIS. PO PRN (12:07)
--- NOTE | 2017-02-18 17:19 | PDOC2 ---
CONSULT Date of Consult Date of Consult DATE: 02/18/17 TIME: 17:16 Reason for Consult Reason for Consult: IM management Referring Physician Referring Physician: dr. Reina Identification/Chief Complaint Chief Complaint dizzy Source Source: Chart review, Patient History of Present Illness Reason for Visit: 26yo F, healthy, came to [place] 2 days ago for abd pain, N/V, no appetite. She underwent lap appendectomy on 02/16. She has mild diffuse abd pain, has flatus, no BM post op. cont having Nausea, with some lightheaded. K 3.0. Past Medical History Pulmonary: Asthma Past Surgical History Past Surgical History: Cholecystectomy Family History Family History: Depression, Hypertension Social History No ALCOHOL: occassional Drugs: None Current Problem List Problem List Problems Medical Problems: (1) Acute appendicitis Status: Acute (2) LUQ abdominal pain Status: Acute Current Medications Current Medications Current Medications Multi-Ingredient Mouthwash/Gargle 15 ml 15 ml 1X ONCE SWSW Last administered on 02/15/17 14:50; Start 02/15/17 at 14:30; Stop 02/15/17 at 14:31; Status DC Sodium Chloride (Iv Sodium Chloride 0.9% 1000ml Bag) 1,000 ml @ 1,000 mls/hr Q1H IV Last administered on 02/15/17 14:36; Start 02/15/17 at 14:16; Stop at 15:15; Status DC Ondansetron HCl (Zofran) 4 mg 1X ONCE IV Last administered on 02/15/17 14:38 ; Start 02/15/17 at 14:30; Stop 02/15/17 at 14:31; Status DC Famotidine (Pepcid) 20 mg 1X ONCE IVP Last administered on 02/15/17 14:37; Start 02/15/17 at 14:30; Stop 02/15/17 at 14:31; Status DC Morphine Sulfate 4 mg 1X ONCE IV Last administered on 02/15/17 14:38; Start 02/15/17 at 14:30; Stop 02/15/17 at 14:31; Status DC Ondansetron HCl (Zofran) 4 mg PRN Q8HRS PRN IV NAUSEA/VOMITING Last administered on 02/16/17 03:09; Start 02/15/17 at 18:15; Stop 02/16/17 at 08:23 ; Status DC Morphine Sulfate 2 mg 2 mg PRN Q2HR PRN IV PAIN Last administered on 02/16/17 10:21; Start 02/15/17 at 18:15; Stop 02/16/17 at 18:14; Status DC Sodium Chloride (Iv Sodium Chloride 0.9% 1000ml Bag) 1,000 ml @ 125 mls/hr Q8H IV Last administered on 02/16/17 03:12; Start 02/15/17 at 18:08; Stop at 18:07; Status DC Acetaminophen 650 mg 650 mg PRN Q4HRS PRN PO FEVER; Start 02/15/17 at 18:15; Stop 02/16/17 at 18:14; Status DC Potassium Chloride (KCl Premix 10meq) 100 ml @ 100 mls/hr Q1H IV Last administered on 02/16/17 08:39; Start 02/16/17 at 08:15; Stop 02/16/17 at 10:14 ; Status DC Ondansetron HCl (Zofran) 4 mg PRN Q6HRS PRN IV NAUSEA/VOMITING Last administered on 02/18/17 08:52; Start 02/16/17 at 08:16 Promethazine HCl 25 mg 25 mg PRN Q6HRS PRN AR NAUSEA/VOMITING Last administered on 02/17/17 11:48; Start 02/16/17 at 08:30 Cefoxitin Sodium/ Sodium Chloride (Mefoxin/Iv Sodium Chloride 0.9% 100ml) 100 ml @ 200 mls/hr ONCE ONCE IV Last administered on 02/16/17 16:25; Start at 11:30; Stop 02/16/17 at 11:59; Status DC Ondansetron HCl (Zofran) 4 mg PRN Q6HRS PRN IV NAUSEA/VOMITING; Start 02/16/17 at 11:45; Stop 02/17/17 at 11:44; Status DC Fentanyl Citrate (Fentanyl 2ml Vial) 25 mcg PRN Q5MIN PRN IV MILD PAIN; Start 02/16/17 at 11:45; Stop 02/17/17 at 11:44; Status DC Fentanyl Citrate 50 mcg 50 mcg PRN Q5MIN PRN IV MODERATE PAIN Last administered on 02/16/17t 18:38; Start 02/16/17 at 11:45; Stop 02/17/17 at 11:44 ; Status DC Lactated Ringer's (Iv Lactated Ringers) 1,000 ml @ 30 mls/hr Q24H IV Last administered on 02/16/17t 18:23; Start 02/16/17 at 11:34; Stop 02/16/17 at 23:33 ; Status DC Lidocaine HCl 2 ml PRN 1X PRN ID PRIOR TO IV START; Start 02/16/17 at 11:45; Stop 02/16/17 at 11:48; Status DC Prochlorperazine Edisylate (Compazine) 5 mg PACU PRN PRN IV NAUSEA, MRX1; Start 02/16/17 at 11:45; Stop 02/17/17 at 11:44; Status DC Desflurane (Suprane) 60 ml STK-MED ONCE IH ; Start 02/16/17 at 13:39; Stop 02/16 at 13:40; Status DC Midazolam HCl (Versed) 2 mg STK-MED ONCE .ROUTE ; Start 02/16/17 at 13:39; Stop 02/16/17 at 13:40; Status DC Fentanyl Citrate (Fentanyl 2ml Vial) 100 mcg STK-MED ONCE .ROUTE ; Start at 13:39; Stop 02/16/17 at 13:40; Status DC Glycopyrrolate (Robinul) 1 mg STK-MED ONCE .ROUTE ; Start 02/16/17 at 13:39; Stop 02/16/17 at 13:40; Status DC Rocuronium Remer (Zemuron) 50 mg STK-MED ONCE .ROUTE ; Start 02/16/17 at 13:40 ; Stop 02/16/17 at 13:41; Status DC Succinylcholine Chloride (Anectine) 200 mg STK-MED ONCE .ROUTE ; Start 02/16/17 at 13:40; Stop 02/16/17 at 13:41; Status DC Neostigmine Methylsulfate 5 mg 5 mg STK-MED ONCE .ROUTE ; Start 02/16/17 at 13: 40; Stop 02/16/17 at 13:41; Status DC Propofol (Diprivan) 20 ml @ As Directed STK-MED ONCE IV ; Start 02/16/17 at 13: 41; Stop 02/16/17 at 13:42; Status DC Lidocaine HCl (Lidocaine HCl 2% Abboject) 100 mg STK-MED ONCE .ROUTE ; Start at 13:41; Stop 02/16/17 at 13:42; Status DC Dexamethasone Sodium Phosphate (Decadron) 20 mg STK-MED ONCE .ROUTE ; Start at 13:41; Stop 02/16/17 at 13:42; Status DC Ondansetron HCl (Zofran) 4 mg STK-MED ONCE .ROUTE ; Start 02/16/17 at 13:42; Stop 02/16/17 at 13:43; Status DC Ketorolac Tromethamine 30 mg 30 mg STK-MED ONCE INJ ; Start 02/16/17 at 13:42; Stop 02/16/17 at 13:43; Status DC Cefoxitin Sodium (Mefoxin 2gm Ivpb For Omni) 100 ml @ As Directed STK-MED ONCE IV ; Start 02/16/17 at 14:28; Stop 02/16/17 at 14:29; Status DC Famotidine 20 mg 20 mg STK-MED ONCE .ROUTE ; Start 02/16/17 at 16:37; Stop 02/16 at 16:38; Status DC Acetaminophen (Ofirmev) 100 ml @ As Directed STK-MED ONCE IV ; Start 02/16/17 at 17:32; Stop 02/16/17 at 17:33; Status DC Diphenhydramine HCl (Benadryl) 25 mg PRN Q6HRS PRN PO ITCHING Last administered on 02/18/17t 06:07; Start 02/16/17 at 17:45 Diphenhydramine HCl (Benadryl) 25 mg PRN Q6HRS PRN IV ITCHING Last administered on 02/17/17 09:49; Start 02/16/17 at 17:45 Enoxaparin Sodium (Lovenox 40mg Syringe) 40 mg Q24H SQ ; Start 02/16/17 at 18:00 ; Stop 02/16/17 at 18:00; Status DC Sodium Chloride 3 ml 3 ml QSHIFT PRN IV AFTER MEDS AND BLOOD DRAWS; Start 02/16 at 17:45 Potassium Chloride/Sodium Chloride (KCl 20 Meq-0.45% Nacl) 1,000 ml @ 100 mls/ hr Q10H IV Last administered on 02/16/17 22:20; Start 02/16/17 at 17:38; Stop 02/17/17 at 12:41; Status DC Dextrose (Dextrose 50%-Water Syringe) 12.5 gm PRN Q15MIN PRN IV SEE COMMENTS; Start 02/16/17 at 17:45 Oxycodone/ Acetaminophen (Percocet 5/325) 1 tab PRN Q4HRS PRN PO MILD PAIN, 1ST CHOICE Last administered on 02/16/17 22:40; Start 02/16/17 at 17:45 Oxycodone/ Acetaminophen (Percocet 5/325) 2 tab PRN Q4HRS PRN PO MODERATE PAIN , SEVERE PAIN Last administered on 02/18/17 12:07; Start 02/16/17 at 17:45 Hydromorphone HCl (Dilaudid) 1 mg Q3HRS PRN IV PAIN Last administered on 08:27; Start 02/16/17 at 17:45; Stop 02/18/17 at 11:48; Status DC Docusate Sodium (Colace) 100 mg BID PO Last administered on 02/18/17 08:52; Start 02/16/17 at 21:00 Ondansetron HCl (Zofran) 4 mg PRN Q6HRS PRN IV NAUESA, 1ST CHOICE; Start at 17:45; Stop 02/18/17 at 11:52; Status DC Enoxaparin Sodium (Lovenox 40mg Syringe) 40 mg Q24H SQ Last administered on 08:53; Start 02/17/17 at 08:00 Ketorolac Tromethamine (Toradol) 30 mg 1X ONCE IV Last administered on 22:44; Start 02/17/17 at 23:00; Stop 02/17/17 at 23:01; Status DC Ondansetron HCl (Zofran Odt) 4 mg PRN Q8HRS PRN PO NAUSEA/VOMITING Last administered on 02/18/17 12:07; Start 02/18/17 at 12:00 Active Scripts Active Zofran Odt (Ondansetron) 8 Mg Tab.rapdis 1 Tab PO Q8HRS Oxycodone-Acetaminophen 5-325 (Oxycodone Hcl/Acetaminophen) 1 Each Tablet 1 Tab PO PRN Q4HRS PRN Docusate Sodium 100 Mg Capsule 100 Mg PO BID Allergies Allergies: Coded Allergies: tramadol (Verified Allergy, Intermediate, Itching, 02/16/17) Physical Exam General: Alert, Oriented X3, Cooperative HEENT: Atraumatic Lungs: Clear to auscultation Heart: Regular rate, Normal S1, Normal S2 Abdomen: Soft, Other (decrease BS, mild diffuse abd tenderness) Extremities: No clubbing, No cyanosis Skin: No rashes, No breakdown Neuro: Normal gait, Normal speech Vitals VITALS Vital Signs Date Time Temp Pulse Resp B/P Pulse Ox O2 Delivery O2 Flow Rate FiO2 02/18/17 15:00 98.2 67 18 97/59 94 Room Air 98.2 02/17/17 13:00 8.0 Labs Labs Laboratory Tests Test 02/17/17 16:15 White Blood Count 8.3x10^3/uL (4.0-11.0) Red Blood Count 4.53x10^6/uL (3.50-5.40) Hemoglobin 11.2g/dL (12.0-15.5) Hematocrit 34.0% (36.0-47.0) Mean Corpuscular Volume 75fL (79-100) Mean Corpuscular Hemoglobin 25pg (25-35) Mean Corpuscular Hemoglobin Concent 33g/dL (31-37) Red Cell Distribution Width 14.1% (11.5-14.5) Platelet Count 279x10^3/uL (140-400) Assessment/Plan Assessment/Plan 1. acute appendicitis s/p lap appendectomy 2. hypokalemia 3. intermittent asthma 4. lightheaded plan: fu with sx on gi soft IVF given low po intake replete K labs tmr pain control PHANI ROLLE MD Feb 18, 2017 17:19
[2017-02-18] MEDS: POTASSIUM CHLORIDE 10MEQ 100 ML IV SCH ×3 (17:45→23:21)
[2017-02-18] MEDS ORDERED: POTASSIUM CL 20MEQ D5-0.9%NACL 1,000 ML IV ONE (18:00)
[2017-02-18] MEDS ORDERED: IBUPROFEN 800 MG TABLET. PO PRN (20:45)
[2017-02-19] MEDS: POTASSIUM CHLORIDE 10MEQ 100 ML IV SCH (01:27)
[2017-02-19 03:21] VITALS: BP 89/49
[2017-02-19 04:50] LABS: BASO % 0 % (0-3); EOS % 3 % (0-3); HEMATOCRIT 30.7 % (36.0-47.0); HEMOGLOBIN 9.9 g/dL (12.0-15.5); LYMPH # 2.2 x10^3/uL (1.0-4.8); LYMPH % 51 % (24-48); MEAN CORPUSCULAR HEMOGLOBIN 25 pg (25-35); MEAN CORPUSCULAR HGB CONC 32 g/dL (31-37); MEAN CORPUSCULAR VOLUME 78 fL (79-100); MONO % 7 % (0-9); NEUT % 39 % (31-73); PLATELET COUNT 218 x10^3/uL (140-400); RED BLOOD COUNT 3.96 x10^6/uL (3.50-5.40); WHITE BLOOD COUNT 4.4 x10^3/uL (4.0-11.0)
[2017-02-19 05:42] LABS: CREATININE 0.9 mg/dL (0.6-1.0); GFR 75.7; POTASSIUM 3.9 mmol/L (3.5-5.1)
[2017-02-19 07:00] VITALS: BP 95/57
--- NOTE | 2017-02-19 07:42 | PATHOLOGY ---
PATHOLOGY REPORT * * * * * * * * FINAL DIAGNOSIS: Appendix, laparoscopic appendectomy: - Chronic and eosinophilic appendicitis. COMMENT: The entire appendix is submitted for histologic evaluation. The distal appendiceal lumen appears obliterated and it is replaced by edematous and inflamed tissue. The more proximal appendiceal mucosa is intact and shows chronic inflammation and focally increased eosinophils. There is an infiltrate of eosinophils and patchy chronic inflammatory cells within the appendiceal fibromuscular wall. There is chronic inflammation within the serosa. There is no evidence of rupture. (JPM:; d/t: 02/18/17) REPORT ELECTRONICALLY SIGNED BY: Carlos Long M.D. DATE/TIME: 02/19/2017 07:41 * * * * * * * * GROSS PATHOLOGY: Received in formalin labeled "jass Franco," is an appendix measuring 6.6 cm in length and 0.9 cm in diameter with a moderate amount of attached mesoappendix. The serosal surface is pale massey and glistening in appearance. Sectioning reveals pinpoint lumen. The specimen is submitted entirely as follows: A1 proximal margin and bisected tip A2-A5 remainder of appendix submitted from proximal to distal aspects. (CAA; 02/17/2017) INITIAL CPT CODE(S): A; 54103 Professional services performed [place] [employer] [address] Technical services performed by [employer] at [address] [place] [address] [address] [address]. SPECIMEN(S) RECEIVED: A.Appendix CLINICAL HISTORY: LUQ pain PATIENT: RANDY BEST /AGE: 2 1990 (Age: 26) PATIENT #: [id number] ALT CASE #: SPECIMEN COLLECTION DATE: 02/16/2017 SPECIMEN RECEIVED DATE: 02/17/2017 [facility] - [address] [place] [address] - PHONE: [phone] * * * END OF REPORT * * *
[2017-02-19] MEDS: ENOXAPARIN 40 MG/0.4 ML SYRINGE. SQ SCH (08:32)
[2017-02-19] MEDS: DOCUSATE SODIUM 100 MG CAPSULE. PO SCH (08:32)
[2017-02-19] MEDS: ONDANSETRON ODT 4 MG TAB.RAPDIS. PO PRN (08:32)
--- NOTE | 2017-02-19 08:47 | PDOC ---
SURGICAL PROGRESS NOTE Subjective she is still dizzy when up nausea, however 50% dinner eaten last night pain managed Vital Signs Vital Signs Date Time Temp Pulse Resp B/P Pulse Ox O2 Delivery O2 Flow Rate FiO2 02/19/17 03:21 97.7 63 18 89/49 95 Room Air 97.7 I&O Intake and Output 02/19/17 06:59 Output Total 400 ml Balance -400 ml Output Urine Total 400 ml # Voids 6 General: Alert, Oriented X3, Cooperative, No acute distress Abdomen: Soft, Other (incisional TTP, lap dressings dry ) Labs Laboratory Tests Test 02/17/17 16:15 02/19/17 03:50 White Blood Count 8.3x10^3/uL (4.0-11.0) 4.4x10^3/uL (4.0-11.0) Red Blood Count 4.53x10^6/uL (3.50-5.40) 3.96x10^6/uL (3.50-5.40) Hemoglobin 11.2g/dL (12.0-15.5) 9.9g/dL (12.0-15.5) Hematocrit 34.0% (36.0-47.0) 30.7% (36.0-47.0) Mean Corpuscular Volume 75fL (79-100) 78fL (79-100) Mean Corpuscular Hemoglobin 25pg (25-35) 25pg (25-35) Mean Corpuscular Hemoglobin Concent 33g/dL (31-37) 32g/dL (31-37) Red Cell Distribution Width 14.1% (11.5-14.5) 14.0% (11.5-14.5) Platelet Count 279x10^3/uL (140-400) 218x10^3/uL (140-400) Neutrophils (%) (Auto) 39% (31-73) Lymphocytes (%) (Auto) 51% (24-48) Monocytes (%) (Auto) 7% (0-9) Eosinophils (%) (Auto) 3% (0-3) Basophils (%) (Auto) 0% (0-3) Neutrophils # (Auto) 1.7x10^3uL (1.8-7.7) Lymphocytes # (Auto) 2.2x10^3/uL (1.0-4.8) Monocytes # (Auto) 0.3x10^3/uL (0.0-1.1) Eosinophils # (Auto) 0.1x10^3/uL (0.0-0.7) Basophils # (Auto) 0.0x10^3/uL (0.0-0.2) Sodium Level 145mmol/L (136-145) Potassium Level 3.9mmol/L (3.5-5.1) Chloride Level 110mmol/L (98-107) Carbon Dioxide Level 28mmol/L (21-32) Anion Gap 7 (6-14) Blood Urea Nitrogen 7mg/dL (7-20) Creatinine 0.9mg/dL (0.6-1.0) Estimated GFR (Cockcroft-Gault) 75.7 Glucose Level 88mg/dL (70-99) Calcium Level 8.0mg/dL (8.5-10.1) Laboratory Tests Test 02/19/17 03:50 White Blood Count 4.4x10^3/uL (4.0-11.0) Red Blood Count 3.96x10^6/uL (3.50-5.40) Hemoglobin 9.9g/dL (12.0-15.5) Hematocrit 30.7% (36.0-47.0) Mean Corpuscular Volume 78fL (79-100) Mean Corpuscular Hemoglobin 25pg (25-35) Mean Corpuscular Hemoglobin Concent 32g/dL (31-37) Red Cell Distribution Width 14.0% (11.5-14.5) Platelet Count 218x10^3/uL (140-400) Neutrophils (%) (Auto) 39% (31-73) Lymphocytes (%) (Auto) 51% (24-48) Monocytes (%) (Auto) 7% (0-9) Eosinophils (%) (Auto) 3% (0-3) Basophils (%) (Auto) 0% (0-3) Neutrophils # (Auto) 1.7x10^3uL (1.8-7.7) Lymphocytes # (Auto) 2.2x10^3/uL (1.0-4.8) Monocytes # (Auto) 0.3x10^3/uL (0.0-1.1) Eosinophils # (Auto) 0.1x10^3/uL (0.0-0.7) Basophils # (Auto) 0.0x10^3/uL (0.0-0.2) Sodium Level 145mmol/L (136-145) Potassium Level 3.9mmol/L (3.5-5.1) Chloride Level 110mmol/L (98-107) Carbon Dioxide Level 28mmol/L (21-32) Anion Gap 7 (6-14) Blood Urea Nitrogen 7mg/dL (7-20) Creatinine 0.9mg/dL (0.6-1.0) Estimated GFR (Cockcroft-Gault) 75.7 Glucose Level 88mg/dL (70-99) Calcium Level 8.0mg/dL (8.5-10.1) Problem List Problems Medical Problems: (1) Acute appendicitis Status: Acute (2) LUQ abdominal pain Status: Acute Assessment/Plan s/p lap appy lightheadedness, orthostatics normal, K normal today continue ambulating, antiemetics prn--DC home if improved po intake today 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
[2017-02-19 11:00] VITALS: BP 98/52
[2017-02-19] MEDS: OXYCODONE/APAP 5/325 TABLET. PO PRN (11:58)
--- NOTE | 2017-02-19 13:03 | PDOC ---
PROGRESS NOTES Chief Complaint Chief Complaint 1. acute appendicitis s/p lap appendectomy 2. hypokalemia 3. intermittent asthma 4. lightheaded plan: fu with sx on gi soft IVF given low po intake replete K labs tmr pain control should be albe to dc today History of Present Illness History of Present Illness still dizzy, better appetite better, 50% Vitals Vitals Vital Signs Date Time Temp Pulse Resp B/P Pulse Ox O2 Delivery O2 Flow Rate FiO2 02/19/17 11:58 Room Air 02/19/17 07:00 97.6 63 14 95/57 96 97.6 Physical Exam General: Alert, Oriented X3, Cooperative, No acute distress Heart: Regular rate, Normal S1, Normal S2 Lungs: Clear Abdomen: Soft, Other (incisional TTP, lap dressings dry ) Extremities: No clubbing, No cyanosis Skin: No rashes, No breakdown Labs LABS Laboratory Tests Test 02/19/17 03:50 White Blood Count 4.4x10^3/uL (4.0-11.0) Red Blood Count 3.96x10^6/uL (3.50-5.40) Hemoglobin 9.9g/dL (12.0-15.5) Hematocrit 30.7% (36.0-47.0) Mean Corpuscular Volume 78fL (79-100) Mean Corpuscular Hemoglobin 25pg (25-35) Mean Corpuscular Hemoglobin Concent 32g/dL (31-37) Red Cell Distribution Width 14.0% (11.5-14.5) Platelet Count 218x10^3/uL (140-400) Neutrophils (%) (Auto) 39% (31-73) Lymphocytes (%) (Auto) 51% (24-48) Monocytes (%) (Auto) 7% (0-9) Eosinophils (%) (Auto) 3% (0-3) Basophils (%) (Auto) 0% (0-3) Neutrophils # (Auto) 1.7x10^3uL (1.8-7.7) Lymphocytes # (Auto) 2.2x10^3/uL (1.0-4.8) Monocytes # (Auto) 0.3x10^3/uL (0.0-1.1) Eosinophils # (Auto) 0.1x10^3/uL (0.0-0.7) Basophils # (Auto) 0.0x10^3/uL (0.0-0.2) Sodium Level 145mmol/L (136-145) Potassium Level 3.9mmol/L (3.5-5.1) Chloride Level 110mmol/L (98-107) Carbon Dioxide Level 28mmol/L (21-32) Anion Gap 7 (6-14) Blood Urea Nitrogen 7mg/dL (7-20) Creatinine 0.9mg/dL (0.6-1.0) Estimated GFR (Cockcroft-Gault) 75.7 Glucose Level 88mg/dL (70-99) Calcium Level 8.0mg/dL (8.5-10.1) Review of Systems Review of Systems no fever, chills, sob or chest pain Assessment and Plan Assessmemt and Plan Problems Medical Problems: (1) Acute appendicitis Status: Acute (2) LUQ abdominal pain Status: Acute Problems: Comment Review of Relevant I have reviewed the following items piyush (where applicable) has been applied. Labs Laboratory Tests Test 02/17/17 16:15 02/19/17 03:50 White Blood Count 8.3x10^3/uL (4.0-11.0) 4.4x10^3/uL (4.0-11.0) Red Blood Count 4.53x10^6/uL (3.50-5.40) 3.96x10^6/uL (3.50-5.40) Hemoglobin 11.2g/dL (12.0-15.5) 9.9g/dL (12.0-15.5) Hematocrit 34.0% (36.0-47.0) 30.7% (36.0-47.0) Mean Corpuscular Volume 75fL (79-100) 78fL (79-100) Mean Corpuscular Hemoglobin 25pg (25-35) 25pg (25-35) Mean Corpuscular Hemoglobin Concent 33g/dL (31-37) 32g/dL (31-37) Red Cell Distribution Width 14.1% (11.5-14.5) 14.0% (11.5-14.5) Platelet Count 279x10^3/uL (140-400) 218x10^3/uL (140-400) Neutrophils (%) (Auto) 39% (31-73) Lymphocytes (%) (Auto) 51% (24-48) Monocytes (%) (Auto) 7% (0-9) Eosinophils (%) (Auto) 3% (0-3) Basophils (%) (Auto) 0% (0-3) Neutrophils # (Auto) 1.7x10^3uL (1.8-7.7) Lymphocytes # (Auto) 2.2x10^3/uL (1.0-4.8) Monocytes # (Auto) 0.3x10^3/uL (0.0-1.1) Eosinophils # (Auto) 0.1x10^3/uL (0.0-0.7) Basophils # (Auto) 0.0x10^3/uL (0.0-0.2) Sodium Level 145mmol/L (136-145) Potassium Level 3.9mmol/L (3.5-5.1) Chloride Level 110mmol/L (98-107) Carbon Dioxide Level 28mmol/L (21-32) Anion Gap 7 (6-14) Blood Urea Nitrogen 7mg/dL (7-20) Creatinine 0.9mg/dL (0.6-1.0) Estimated GFR (Cockcroft-Gault) 75.7 Glucose Level 88mg/dL (70-99) Calcium Level 8.0mg/dL (8.5-10.1) Laboratory Tests Test 02/19/17 03:50 White Blood Count 4.4x10^3/uL (4.0-11.0) Red Blood Count 3.96x10^6/uL (3.50-5.40) Hemoglobin 9.9g/dL (12.0-15.5) Hematocrit 30.7% (36.0-47.0) Mean Corpuscular Volume 78fL (79-100) Mean Corpuscular Hemoglobin 25pg (25-35) Mean Corpuscular Hemoglobin Concent 32g/dL (31-37) Red Cell Distribution Width 14.0% (11.5-14.5) Platelet Count 218x10^3/uL (140-400) Neutrophils (%) (Auto) 39% (31-73) Lymphocytes (%) (Auto) 51% (24-48) Monocytes (%) (Auto) 7% (0-9) Eosinophils (%) (Auto) 3% (0-3) Basophils (%) (Auto) 0% (0-3) Neutrophils # (Auto) 1.7x10^3uL (1.8-7.7) Lymphocytes # (Auto) 2.2x10^3/uL (1.0-4.8) Monocytes # (Auto) 0.3x10^3/uL (0.0-1.1) Eosinophils # (Auto) 0.1x10^3/uL (0.0-0.7) Basophils # (Auto) 0.0x10^3/uL (0.0-0.2) Sodium Level 145mmol/L (136-145) Potassium Level 3.9mmol/L (3.5-5.1) Chloride Level 110mmol/L (98-107) Carbon Dioxide Level 28mmol/L (21-32) Anion Gap 7 (6-14) Blood Urea Nitrogen 7mg/dL (7-20) Creatinine 0.9mg/dL (0.6-1.0) Estimated GFR (Cockcroft-Gault) 75.7 Glucose Level 88mg/dL (70-99) Calcium Level 8.0mg/dL (8.5-10.1) Microbiology 02/15/17 Urine Culture - Final, Complete 02/15/17 Urine Culture Result 1 (LAMAR) - Final, Complete Medications Current Medications Multi-Ingredient Mouthwash/Gargle 15 ml 15 ml 1X ONCE SWSW Last administered on 02/15/17 14:50; Start 02/15/17 at 14:30; Stop 02/15/17 at 14:31; Status DC Sodium Chloride (Iv Sodium Chloride 0.9% 1000ml Bag) 1,000 ml @ 1,000 mls/hr Q1H IV Last administered on 02/15/17 14:36; Start 02/15/17 at 14:16; Stop at 15:15; Status DC Ondansetron HCl (Zofran) 4 mg 1X ONCE IV Last administered on 02/15/17 14:38 ; Start 02/15/17 at 14:30; Stop 02/15/17 at 14:31; Status DC Famotidine (Pepcid) 20 mg 1X ONCE IVP Last administered on 02/15/17 14:37; Start 02/15/17 at 14:30; Stop 02/15/17 at 14:31; Status DC Morphine Sulfate 4 mg 1X ONCE IV Last administered on 02/15/17 14:38; Start 02/15/17 at 14:30; Stop 02/15/17 at 14:31; Status DC Ondansetron HCl (Zofran) 4 mg PRN Q8HRS PRN IV NAUSEA/VOMITING Last administered on 02/16/17 03:09; Start 02/15/17 at 18:15; Stop 02/16/17 at 08:23 ; Status DC Morphine Sulfate 2 mg 2 mg PRN Q2HR PRN IV PAIN Last administered on 02/16/17 10:21; Start 02/15/17 at 18:15; Stop 02/16/17 at 18:14; Status DC Sodium Chloride (Iv Sodium Chloride 0.9% 1000ml Bag) 1,000 ml @ 125 mls/hr Q8H IV Last administered on 02/16/17 03:12; Start 02/15/17 at 18:08; Stop at 18:07; Status DC Acetaminophen 650 mg 650 mg PRN Q4HRS PRN PO FEVER; Start 02/15/17 at 18:15; Stop 02/16/17 at 18:14; Status DC Potassium Chloride (KCl Premix 10meq) 100 ml @ 100 mls/hr Q1H IV Last administered on 02/16/17 08:39; Start 02/16/17 at 08:15; Stop 02/16/17 at 10:14 ; Status DC Ondansetron HCl (Zofran) 4 mg PRN Q6HRS PRN IV NAUSEA/VOMITING Last administered on 02/18/17 08:52; Start 02/16/17 at 08:16 Promethazine HCl 25 mg 25 mg PRN Q6HRS PRN SC NAUSEA/VOMITING Last administered on 02/17/17 11:48; Start 02/16/17 at 08:30 Cefoxitin Sodium/ Sodium Chloride (Mefoxin/Iv Sodium Chloride 0.9% 100ml) 100 ml @ 200 mls/hr ONCE ONCE IV Last administered on 02/16/17 16:25; Start at 11:30; Stop 02/16/17 at 11:59; Status DC Ondansetron HCl (Zofran) 4 mg PRN Q6HRS PRN IV NAUSEA/VOMITING; Start 02/16/17 at 11:45; Stop 02/17/17 at 11:44; Status DC Fentanyl Citrate (Fentanyl 2ml Vial) 25 mcg PRN Q5MIN PRN IV MILD PAIN; Start 02/16/17 at 11:45; Stop 02/17/17 at 11:44; Status DC Fentanyl Citrate 50 mcg 50 mcg PRN Q5MIN PRN IV MODERATE PAIN Last administered on 02/16/17t 18:38; Start 02/16/17 at 11:45; Stop 02/17/17 at 11:44 ; Status DC Lactated Ringer's (Iv Lactated Ringers) 1,000 ml @ 30 mls/hr Q24H IV Last administered on 02/16/17t 18:23; Start 02/16/17 at 11:34; Stop 02/16/17 at 23:33 ; Status DC Lidocaine HCl 2 ml PRN 1X PRN ID PRIOR TO IV START; Start 02/16/17 at 11:45; Stop 02/16/17 at 11:48; Status DC Prochlorperazine Edisylate (Compazine) 5 mg PACU PRN PRN IV NAUSEA, MRX1; Start 02/16/17 at 11:45; Stop 02/17/17 at 11:44; Status DC Desflurane (Suprane) 60 ml STK-MED ONCE IH ; Start 02/16/17 at 13:39; Stop 02/16 at 13:40; Status DC Midazolam HCl (Versed) 2 mg STK-MED ONCE .ROUTE ; Start 02/16/17 at 13:39; Stop 02/16/17 at 13:40; Status DC Fentanyl Citrate (Fentanyl 2ml Vial) 100 mcg STK-MED ONCE .ROUTE ; Start at 13:39; Stop 02/16/17 at 13:40; Status DC Glycopyrrolate (Robinul) 1 mg STK-MED ONCE .ROUTE ; Start 02/16/17 at 13:39; Stop 02/16/17 at 13:40; Status DC Rocuronium [place] (Zemuron) 50 mg STK-MED ONCE .ROUTE ; Start 02/16/17 at 13:40 ; Stop 02/16/17 at 13:41; Status DC Succinylcholine Chloride (Anectine) 200 mg STK-MED ONCE .ROUTE ; Start 02/16/17 at 13:40; Stop 02/16/17 at 13:41; Status DC Neostigmine Methylsulfate 5 mg 5 mg STK-MED ONCE .ROUTE ; Start 02/16/17 at 13: 40; Stop 02/16/17 at 13:41; Status DC Propofol (Diprivan) 20 ml @ As Directed STK-MED ONCE IV ; Start 02/16/17 at 13: 41; Stop 02/16/17 at 13:42; Status DC Lidocaine HCl (Lidocaine HCl 2% Abboject) 100 mg STK-MED ONCE .ROUTE ; Start at 13:41; Stop 02/16/17 at 13:42; Status DC Dexamethasone Sodium Phosphate (Decadron) 20 mg STK-MED ONCE .ROUTE ; Start at 13:41; Stop 02/16/17 at 13:42; Status DC Ondansetron HCl (Zofran) 4 mg STK-MED ONCE .ROUTE ; Start 02/16/17 at 13:42; Stop 02/16/17 at 13:43; Status DC Ketorolac Tromethamine 30 mg 30 mg STK-MED ONCE INJ ; Start 02/16/17 at 13:42; Stop 02/16/17 at 13:43; Status DC Cefoxitin Sodium (Mefoxin 2gm Ivpb For Omni) 100 ml @ As Directed STK-MED ONCE IV ; Start 02/16/17 at 14:28; Stop 02/16/17 at 14:29; Status DC Famotidine 20 mg 20 mg STK-MED ONCE .ROUTE ; Start 02/16/17 at 16:37; Stop 02/16 at 16:38; Status DC Acetaminophen (Ofirmev) 100 ml @ As Directed STK-MED ONCE IV ; Start 02/16/17 at 17:32; Stop 02/16/17 at 17:33; Status DC Diphenhydramine HCl (Benadryl) 25 mg PRN Q6HRS PRN PO ITCHING Last administered on 02/18/17t 20:56; Start 02/16/17 at 17:45 Diphenhydramine HCl (Benadryl) 25 mg PRN Q6HRS PRN IV ITCHING Last administered on 02/17/17 09:49; Start 02/16/17 at 17:45 Enoxaparin Sodium (Lovenox 40mg Syringe) 40 mg Q24H SQ ; Start 02/16/17 at 18:00 ; Stop 02/16/17 at 18:00; Status DC Sodium Chloride 3 ml 3 ml QSHIFT PRN IV AFTER MEDS AND BLOOD DRAWS; Start 02/16 at 17:45 Potassium Chloride/Sodium Chloride (KCl 20 Meq-0.45% Nacl) 1,000 ml @ 100 mls/ hr Q10H IV Last administered on 02/16/17 22:20; Start 02/16/17 at 17:38; Stop 02/17/17 at 12:41; Status DC Dextrose (Dextrose 50%-Water Syringe) 12.5 gm PRN Q15MIN PRN IV SEE COMMENTS; Start 02/16/17 at 17:45 Oxycodone/ Acetaminophen (Percocet 5/325) 1 tab PRN Q4HRS PRN PO MILD PAIN, 1ST CHOICE Last administered on 02/16/17 22:40; Start 02/16/17 at 17:45 Oxycodone/ Acetaminophen (Percocet 5/325) 2 tab PRN Q4HRS PRN PO MODERATE PAIN , SEVERE PAIN Last administered on 02/19/17 11:58; Start 02/16/17 at 17:45 Hydromorphone HCl (Dilaudid) 1 mg Q3HRS PRN IV PAIN Last administered on 08:27; Start 02/16/17 at 17:45; Stop 02/18/17 at 11:48; Status DC Docusate Sodium (Colace) 100 mg BID PO Last administered on 02/19/17 08:32; Start 02/16/17 at 21:00 Ondansetron HCl (Zofran) 4 mg PRN Q6HRS PRN IV NAUESA, 1ST CHOICE; Start at 17:45; Stop 02/18/17 at 11:52; Status DC Enoxaparin Sodium (Lovenox 40mg Syringe) 40 mg Q24H SQ Last administered on 08:32; Start 02/17/17 at 08:00 Ketorolac Tromethamine (Toradol) 30 mg 1X ONCE IV Last administered on 22:44; Start 02/17/17 at 23:00; Stop 02/17/17 at 23:01; Status DC Ondansetron HCl 4 mg 4 mg PRN Q8HRS PRN PO NAUSEA/VOMITING Last administered on 02/19/17 08:32; Start 02/18/17 at 12:00 Potassium Chloride 100 ml @ 100 mls/hr Q1H IV Last administered on 02/19/17 01:27; Start 02/18/17 at 17:30; Stop 02/18/17 at 21:29; Status DC Potassium Chloride/Dextrose/ Sod Cl (KCl 20 Meq In D5W-NS) 1,000 ml @ 75 mls/ hr 1X ONCE IV Last administered on 02/18/17 17:45; Start 02/18/17 at 18:00; Stop 02/19/17 at 07:19; Status DC Ibuprofen (Motrin) 800 mg PRN Q8HRS PRN PO INFLAMMATION Last administered on 20:57; Start 02/18/17 at 20:45 Active Scripts Active Zofran Odt (Ondansetron) 8 Mg Tab.rapdis 1 Tab PO Q8HRS Oxycodone-Acetaminophen 5-325 (Oxycodone Hcl/Acetaminophen) 1 Each Tablet 1 Tab PO PRN Q4HRS PRN Docusate Sodium 100 Mg Capsule 100 Mg PO BID Vitals/I & O Vital Sign - Last 24 Hours 02/18/17 02/18/17 02/18/17 02/18/17 15:00 17:05 17:07 17:09 Temp 98.2 98.2 Pulse 67 63 64 69 Resp 18 B/P 97/59 106/66 110/78 112/74 Pulse Ox 94 96 98 99 O2 Delivery Room Air Room Air Room Air Room Air 02/18/17 02/18/17 02/18/17 02/18/17 17:11 17:47 19:00 20:00 Temp 98.1 98.1 Pulse 69 65 Resp 20 B/P 110/75 106/63 Pulse Ox 98 99 O2 Delivery Room Air Room Air Room Air Room Air 02/18/17 02/18/17 02/19/17 02/19/17 23:01 23:21 01:27 03:21 Temp 97.8 97.7 97.8 97.7 Pulse 70 63 Resp 20 18 B/P 100/59 89/49 Pulse Ox 97 95 O2 Delivery Room Air Room Air Room Air Room Air 02/19/17 02/19/17 02/19/17 07:00 08:30 11:58 Temp 97.6 97.6 Pulse 63 Resp 14 B/P 95/57 Pulse Ox 96 O2 Delivery Room Air Room Air Room Air Intake and Output 02/18/17 02/18/17 02/19/17 15:00 23:00 07:00 Output Total 400 ml Balance -400 ml PHANI ROLLE MD Feb 19, 2017 13:03
--- NOTE | 2017-02-20 10:20 | PDOC3 ---
Discharge Summary* Date of Admission: Feb 15, 2017 Date of Discharge: Feb 19, 2017 Admitting Diagnosis Problems Medical Problems: (1) Acute appendicitis Status: Acute (2) LUQ abdominal pain Status: Acute Final Diagnosis Problems Medical Problems: (1) Acute appendicitis Status: Acute (2) LUQ abdominal pain Status: Acute CONSULTS IPC Procedures Laparoscopic appendectomy Brief Hospital Course Ms. Arroyo is a 26 old female who presented with abdominal pain. Underwent a laparoscopic appendectomy, postoperatively had low appetite and dizziness. Her orthostatics were normal, she had her potassium replaced prior to discharge. At discharge she was tolerating regular food, ambulating(some lightheadedness still), no vomiting, and urinating well Disposition/Orders: D/C to Home CONDITION AT DISCHARGE: Stable Diet: Regular Scheduled Docusate Sodium (Docusate Sodium) 100 MG PO BID Ondansetron (Zofran Odt) 1 TAB PO Q8HRS Scheduled PRN Oxycodone Hcl/Acetaminophen (Oxycodone-Acetaminophen 5-325) 1 TAB PO PRN Q4HRS PRN PRN MILD PAIN, 1ST CHOICE FOLLOW UP APPOINTMENT: 1 week Time Spent Total time spent with patient [] minutes for coordination of care, counseling, and education. MIRTHA VILLA [employer] Feb 20, 2017 10:20
== END 2017-02-19 15:10 | disposition home or self-care (01) ==
LOC: ER 13:40 → 4 NORTH 18:07
PROVIDERS: ADMIT Surgery; ATTEND Surgery
DX: K35.80 Unspecified acute appendicitis (principal); E87.6 Hypokalemia; J45.20 Mild intermittent asthma, uncomplicated; Z81.8 Family history of other mental and behavioral disorders; Z82.49 Family history of ischemic heart disease and other diseases of the circulatory system
CPT/HCPCS: 36415; 44970; 74176; 80048; 80053; 81001; 81025; 83690; 85027; 87086; 88304; 96365; 96366; 96372; 96375; 96376; C1782; G0378; G0379; J0131; J0330; J0694; J1100; J1170; J1200; J1650; J1885; J2250; J2270; J2405; J2704; J2710; J3010; J3480; J3490; J7030; Q0162; Q0163; S0028; J7120

== ENCOUNTER 2017-06-04 23:25 | Emergency (ER) | payer OTHER ==
[~2017-06-04] VITALS: Ht 167.6 cm; Wt 86.2 kg
[~2017-06-04 23:25] MED LIST: DOCU100C28 PO; ONDA8TAB12 PO; OXYC1TAB7 PO
[2017-06-04 23:28] VITALS: BP 126/68
[2017-06-04] MEDS ORDERED: NAPR500T PO (23:39)
--- NOTE | 2017-06-04 23:40 | PHYS DOC ---
Past Medical History Past Medical History: Asthma Past Surgical History: Cholecystectomy, Tubal ligation Alcohol Use: Occasionally Drug Use: None Adult General Chief Complaint Chief Complaint: BREAST PAIN/INJURY [facility] HPI Patient is a 26 year old female presents to the emergency department with a two -week history of right breast pain. She states the sensation is that of a rug burn. No known trauma. She states that she last nursed an infant 16 months ago. She notes no skin changes. No erythema to the breast. No nipple discharge. Review of Systems Review of Systems Constitutional: Denies fever or chills [] Eyes: Denies change in visual acuity, redness, or eye pain [] HENT: Denies nasal congestion or sore throat [] Respiratory/chest wall: Denies cough or shortness of breath, right breast exam unremarkable. Mild tenderness to the right lateral chest wall. [] Cardiovascular: No additional information not addressed in HPI [] GI: Denies abdominal pain, nausea, vomiting, bloody stools or diarrhea [] : Denies dysuria or hematuria [] Musculoskeletal: Denies back pain or joint pain [] Integument: Denies rash or skin lesions [] Neurologic: Denies headache, focal weakness or sensory changes [] Endocrine: Denies polyuria or polydipsia [] Allergies Allergies Allergies Coded Allergies Type Severity Reaction Last Updated Verified tramadol Allergy Intermediate Itching 02/16/17 Yes Physical Exam Physical Exam Constitutional: Well developed, well nourished, no acute distress, non-toxic appearance. [] HENT: Normocephalic, atraumatic, bilateral external ears normal, oropharynx moist, no oral exudates, nose normal. [] Eyes: PERRLA, EOMI, conjunctiva normal, no discharge. [] Neck: Normal range of motion, no tenderness, supple, no stridor. [] Cardiovascular:Heart rate regular rhythm, no murmur [] Lungs & Thorax: Bilateral breath sounds clear to auscultation [] Abdomen: Bowel sounds normal, soft, no tenderness, no masses, no pulsatile masses. [] Skin: Warm, dry, no erythema, no rash. [] Back: No tenderness, no CVA tenderness. [] Extremities: No tenderness, no cyanosis, no clubbing, ROM intact, no edema. [] Neurologic: Alert and oriented X 3, normal motor function, normal sensory function, no focal deficits noted. [] Current Patient Data Vital Signs Vital Signs Date Time Temp Pulse Resp B/P (MAP) Pulse Ox O2 Delivery O2 Flow Rate FiO2 06/04/17 23:28 98.0 78 18 99 Room Air 98.0 EKG EKG [] Radiology/Procedures Radiology/Procedures [] Course & Med Decision Making Course & Med Decision Making Pertinent Labs and Imaging studies reviewed. (See chart for details) [] Dragon Disclaimer Dragon Disclaimer This electronic medical record was generated, in whole or in part, using a voice recognition dictation system. Departure Departure Impression: Primary Impression: Chest wall pain Disposition: HOME, SELF-CARE Condition: STABLE Referrals: NO PCP (PCP) [facility] Patient Instructions: Chest Wall Pain Additional Instructions: Packs to the affected area. Follow[facility]up with [facility], schedule a mammogram. Scripts Naproxen (NAPROSYN) 500 Mg Tablet 500 MG PO BID Y for PAIN, #20 TAB Prov: CRISTINA TOLLIVER APRN 06/04/17 CRISTINA TOLLIVER APRN Jun 04, 2017 23:40
[2017-06-04] MEDS ORDERED: IBUPROFEN 800 MG TABLET. PO ONE (23:43)
[2017-06-05] MEDS ORDERED: IBUPROFEN 800 MG TABLET. PO ONE
== END 2017-06-04 23:48 | disposition home or self-care (01) ==
LOC: ER 23:25
DX: R07.89 Other chest pain (principal); J45.909 Unspecified asthma, uncomplicated; Z90.49 Acquired absence of other specified parts of digestive tract; Z88.5 Allergy status to narcotic agent
CPT/HCPCS: 99282

== ENCOUNTER 2017-11-29 06:43 | Emergency (ER) | payer OTHER ==
[2017-11-29 07:57] LABS: INFLUENZA A PATIENT POSITIVE (NEGATIVE); INFLUENZA B PATIENT NEGATIVE (NEGATIVE); OBC FLU VALID
== END 2017-11-29 08:34 | disposition home or self-care (01) ==
LOC: ER 06:43
DX: J09.X2 Influenza due to identified novel influenza A virus with other respiratory manifestations (principal); J45.909 Unspecified asthma, uncomplicated; Z87.891 Personal history of nicotine dependence; Z88.6 Allergy status to analgesic agent
CPT/HCPCS: 87804; 87804-59; 99284

== ENCOUNTER 2020-02-01 15:32 | Emergency (ER) | payer SELFPAY ==
[~2020-02-01] VITALS: Ht 167.6 cm; Wt 90.0 kg
[~2020-02-01 15:32] MED LIST changes: +NAPR-683 PO; +ONDA4TAB10 SL
--- NOTE | 2020-02-01 16:04 | PHYS DOC ---
Past Medical History Past Medical History: Asthma Past Surgical History: Appendectomy, Cholecystectomy, Tubal ligation Smoking Status: Former Smoker Alcohol Use: Occasionally Drug Use: None Adult General Chief Complaint Chief Complaint: SHORTNESS OF BREATH HPI HPI Patient is a 29 year old female presenting to the ED with a chief complaint of cough and shortness of breath. Patient states that she has a history of asthma. Patient states that she does not have insurance and so does not have any inhalers or other medications. Patient denies . Patient states that she has been feeling like this for the last couple days. Patient does state that she had a low-grade fever 2 days ago. Patient denies recent travel or coming in contact with anyone who has the coronavirus. Review of Systems Review of Systems Patient does complain of subjective fever, shortness of breath. Patient denies , abdominal pain, chest pain, nausea, vomiting, diarrhea, dysuria. All other systems were reviewed and found to be within normal limits, except as documented in this note. Current Medications Current Medications Current Medications Medications (Trade) Dose Ordered Sig/Ada Start Time Stop Time Status Last Admin Dose Admin Albuterol/ Ipratropium (Duoneb) 3 ml 1X ONCE 02/01/20 16:00 02/01/20 16:01 DC 02/01/20 16:26 3 ML Methylprednisolone Sodium Succinate (SOLU-Medrol 125MG VIAL) 125 mg 1X ONCE 02/01/20 16:45 02/01/20 16:46 DC 02/01/20 16:54 125 MG Allergies Allergies Allergies Coded Allergies Type Severity Reaction Last Updated Verified tramadol Allergy Intermediate Itching 02/16/17 Yes fentanyl Allergy Unknown Shortness of Air 02/01/20 Yes Physical Exam Physical Exam Constitutional: Well developed, well nourished, no acute distress, non-toxic appearance. [] HENT: Normocephalic, atraumatic Eyes: EOMI, PERRL Neck: Normal range of motion Cardiovascular:Heart rate regular rhythm Lungs & Thorax: Bilateral wheezing Abdomen: Bowel sounds normal, soft, no tenderness Extremities: No tenderness, ROM intact Neurologic: Alert and oriented X 3 Current Patient Data Vital Signs Vital Signs Date Time Temp Pulse Resp B/P (MAP) Pulse Ox O2 Delivery O2 Flow Rate FiO2 02/01/20 16:26 98 Room Air 02/01/20 16:14 97.9 78 18 135/85 (102) 97.9 EKG EKG [] Radiology/Procedures Radiology/Procedures [] Impressions: Chest xray is negative for acute disease Course & Med Decision Making Course & Med Decision Making Pertinent Imaging studies reviewed. (See chart for details) Ordered chest xray, Solumedrol and Duoneb. Chest x-ray is negative for acute disease. Patient states that she is breathing better after the breathing treatment and Solu-Medrol. Patient states that she is comfortable to be discharged home. We will discharge patient home on oral steroids and inhaler. Discussed results and plan of care with patient. Patient is instructed to follow up with PCP in one to 2 days. Appropriate discharge instructions given to patient to return to the ED or to seek immediate medical evaluation. Patient is instructed to return to the ED if symptoms worsen or if any concerns. Dragon Disclaimer Dragon Disclaimer This electronic medical record was generated, in whole or in part, using a voice recognition dictation system. Departure Departure Impression: Primary Impression: Asthma attack Disposition: HOME, SELF-CARE Condition: IMPROVED Referrals: NO PCP (PCP) Patient Instructions: Asthma, Adult Scripts Albuterol Sulfate (PROAIR HFA INHALER) 8.5 Gm Hfa.aer.ad 2 PUFF IH PRN Q4-6HRS PRN for wheezing for 21 Days, #1 INHALER 0 Refills Prov: MAYKEL BOO DO 02/01/20 Prednisone (PREDNISONE) 20 Mg Tablet 2 TAB PO DAILY for 5 Days, #10 TAB Prov: MAYKEL BOO DO 02/01/20 MAYKEL BOO DO Feb 01, 2020 16:04
[2020-02-01 16:14] VITALS: BP 135/85
[2020-02-01] MEDS: IPRATRPIUM/ALBUTEROL 0.5/2.5MG 3 ML NEBU. NEB ONE (16:26)
--- NOTE | 2020-02-01 16:26 | RAD ---
Single view chest dated 02/01/2020: No comparison available. Clinical Indication: Shortness breath. Findings: Single upright portable exam of the chest was performed. Heart size and mediastinal contours are within normal limits given technique. The lungs are clear without evidence of focal consolidation. Vascular interstitium is within normal limits. Impression:: Negative portable chest. Electronically signed by: Bakari Stark MD (02/01/2020 4:23 PM) [id number]
[2020-02-01] MEDS ORDERED: PRED20TA PO (16:42)
[2020-02-01] MEDS ORDERED: ALBU2.5V8 IH (16:42)
[2020-02-01] MEDS: methylPREDNISolone SOD SUCC PF 125 MG/2 ML VIAL. IM ONE (16:54)
== END 2020-02-01 17:20 | disposition home or self-care (01) ==
LOC: ER 15:32
DX: J45.909 Unspecified asthma, uncomplicated (principal); Z87.891 Personal history of nicotine dependence; Z88.4 Allergy status to anesthetic agent; Z88.6 Allergy status to analgesic agent
CPT/HCPCS: 71045; 94640; 96372; 99283; J2930

== ENCOUNTER 2020-03-21 08:16 | Emergency (ER) | payer OTHER ==
[~2020-03-21] VITALS: Ht 167.6 cm; Wt 90.0 kg
[~2020-03-21 08:16] MED LIST changes: +ALBU2.5V8 IH; +PRED20TA PO
--- NOTE | 2020-03-21 10:01 | PHYS DOC ---
Past Medical History Past Medical History: Anxiety, Asthma, Depression Past Surgical History: Appendectomy, Cholecystectomy, Tubal ligation Smoking Status: Former Smoker Alcohol Use: Occasionally Drug Use: None Adult General Chief Complaint Chief Complaint: CHEST PAIN HPI HPI Patient is a 29 year old female with history of asthma who presents with intermittent daily left-sided chest pain starting 10 days ago. Patient describes central and axillary sharp chest wall pain worse with deep breathing movement lasting several hours a day. Symptoms are present accompanied with increased anxiety and palpitations. Most recent episode occurred prior to ED arrival bwhile grocery shopping and resolved on the way to the emergency department. Denies fever chills, shortness of breath. No leg pain or swelling. No history of DVT or PE. No other acute symptoms or complaints. [] Review of Systems Review of Systems ROS as per HPI All other systems were reviewed and found to be within normal limits, except as documented in this note. Allergies Allergies Allergies Coded Allergies Type Severity Reaction Last Updated Verified tramadol Allergy Intermediate Itching 02/16/17 Yes fentanyl Allergy Unknown Shortness of Air 02/01/20 Yes Physical Exam Physical Exam Constitutional: Well developed, well nourished, no acute distress, non-toxic appearance. [] HENT: Normocephalic, atraumatic, bilateral external ears normal, oropharynx moist, no oral exudates, nose normal. [] Eyes: PERRLA, EOMI, conjunctiva normal, no discharge. [] Neck: Normal range of motion, no tenderness, supple, no stridor. [] Cardiovascular:Heart rate regular rhythm, no murmur [] Lungs & Thorax: Bilateral breath sounds clear to auscultation [] Abdomen: Bowel sounds normal, soft, no tenderness. [] Skin: Warm, dry. [] Back: No tenderness. [] Extremities: No tenderness. [] Neurologic: Alert and oriented X 3, normal motor function, normal sensory function, no focal deficits noted. [] Psychologic: Affect normal, judgement normal, mood normal. [] Current Patient Data Vital Signs Vital Signs Date Time Temp Pulse Resp B/P (MAP) Pulse Ox O2 Delivery O2 Flow Rate FiO2 03/21/20 10:00 117/62 (80) 03/21/20 09:30 76 18 100 Room Air 03/21/20 08:25 98.6 98.6 Lab Values Laboratory Tests Test 03/21/20 10:05 03/21/20 10:25 White Blood Count 7.6 x10^3/uL (4.0-11.0) Red Blood Count 5.13 x10^6/uL (3.50-5.40) Hemoglobin 13.1 g/dL (12.0-15.5) Hematocrit 40.2 % (36.0-47.0) Mean Corpuscular Volume 78 fL (79-100) L Mean Corpuscular Hemoglobin 26 pg (25-35) Mean Corpuscular Hemoglobin Concent 33 g/dL (31-37) Red Cell Distribution Width 13.8 % (11.5-14.5) Platelet Count 287 x10^3/uL (140-400) Neutrophils (%) (Auto) 55 % (31-73) Lymphocytes (%) (Auto) 35 % (24-48) Monocytes (%) (Auto) 6 % (0-9) Eosinophils (%) (Auto) 3 % (0-3) Basophils (%) (Auto) 1 % (0-3) Neutrophils # (Auto) 4.2 x10^3/uL (1.8-7.7) Lymphocytes # (Auto) 2.6 x10^3/uL (1.0-4.8) Monocytes # (Auto) 0.5 x10^3/uL (0.0-1.1) Eosinophils # (Auto) 0.2 x10^3/uL (0.0-0.7) Basophils # (Auto) 0.1 x10^3/uL (0.0-0.2) D-Dimer (Vaishali) < 0.27 ug/mlFEU Sodium Level 142 mmol/L (136-145) Potassium Level 3.9 mmol/L (3.5-5.1) Chloride Level 107 mmol/L (98-107) Carbon Dioxide Level 28 mmol/L (21-32) Anion Gap 7 (6-14) Blood Urea Nitrogen 11 mg/dL (7-20) Creatinine 0.8 mg/dL (0.6-1.0) Estimated GFR (Cockcroft-Gault) 84.8 BUN/Creatinine Ratio 14 (6-20) Glucose Level 89 mg/dL (70-99) Calcium Level 8.5 mg/dL (8.5-10.1) Total Bilirubin 0.2 mg/dL (0.2-1.0) Aspartate Amino Transferase (AST) 15 U/L (15-37) Alanine Aminotransferase (ALT) 29 U/L (14-59) Alkaline Phosphatase 71 U/L (46-116) Troponin I Quantitative < 0.017 ng/mL (0.000-0.055) Total Protein 6.4 g/dL (6.4-8.2) Albumin 3.5 g/dL (3.4-5.0) Albumin/Globulin Ratio 1.2 (1.0-1.7) Laboratory Tests 03/21/20 10:05 Laboratory Tests 03/21/20 10:25 EKG EKG [EKG: reviewed] Radiology/Procedures Radiology/Procedures [CXR: no acute disease] Course & Med Decision Making Course & Med Decision Making Pertinent Labs and Imaging studies reviewed. (See chart for details) [Symptoms consistent with pleurisy. Recommend supportive care with PCP follow- up.] Dragon Disclaimer Dragon Disclaimer This electronic medical record was generated, in whole or in part, using a voice recognition dictation system. Departure Departure Referrals: NO PCP (PCP) NIA TUCKER DO March 21, 2020 10:01
[2020-03-21 10:14] LABS: BASO # 0.1 x10^3/uL (0.0-0.2); BASO % 1 % (0-3); EOS # 0.2 x10^3/uL (0.0-0.7); EOS % 3 % (0-3); HEMATOCRIT 40.2 % (36.0-47.0); HEMOGLOBIN 13.1 g/dL (12.0-15.5); LYMPH # 2.6 x10^3/uL (1.0-4.8); LYMPH % 35 % (24-48); MEAN CORPUSCULAR HEMOGLOBIN 26 pg (25-35); MEAN CORPUSCULAR HGB CONC 33 g/dL (31-37); MEAN CORPUSCULAR VOLUME 78 fL (79-100); MONO # 0.5 x10^3/uL (0.0-1.1); MONO % 6 % (0-9); NEUT # 4.2 x10^3/uL (1.8-7.7); NEUT % 55 % (31-73); PLATELET COUNT 287 x10^3/uL (140-400); RED BLOOD COUNT 5.13 x10^6/uL (3.50-5.40); RED CELL DISTRIBUTION WIDTH 13.8 % (11.5-14.5); WHITE BLOOD COUNT 7.6 x10^3/uL (4.0-11.0)
--- NOTE | 2020-03-21 10:33 | RAD ---
INDICATION: Chest pain and shortness of breath COMPARISON: February 01, 2020 FINDINGS: Single view of chest obtained. No focal airspace consolidation or pulmonary edema. Cardiac silhouette is similar to prior. IMPRESSION: * No focal airspace consolidation or edema. Electronically signed by: Ousmane Phillip MD (03/21/2020 10:29 AM) [id number]
[2020-03-21 10:45] LABS: ALBUMIN 3.5 g/dL (3.4-5.0); ALBUMIN/GLOBULIN RATIO 1.2 (1.0-1.7); CALCIUM 8.5 mg/dL (8.5-10.1); CREATININE 0.8 mg/dL (0.6-1.0); GFR 84.8; POTASSIUM 3.9 mmol/L (3.5-5.1); TOTAL BILIRUBIN 0.2 mg/dL (0.2-1.0); TOTAL PROTEIN 6.4 g/dL (6.4-8.2)
[2020-03-21 11:00] VITALS: BP 105/69
--- NOTE | 2020-03-21 11:02 | EKG ---
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
== END 2020-03-21 11:30 | disposition home or self-care (01) ==
LOC: ER 08:16
DX: R07.89 Other chest pain (principal); R00.2 Palpitations; J45.909 Unspecified asthma, uncomplicated; F41.9 Anxiety disorder, unspecified; F32.9 Major depressive disorder, single episode, unspecified; Z90.89 Acquired absence of other organs; Z90.49 Acquired absence of other specified parts of digestive tract; Z98.51 Tubal ligation status; Z87.891 Personal history of nicotine dependence
CPT/HCPCS: 36415; 71045; 80053; 84484; 85025; 85379; 93005; 99285

== ENCOUNTER 2021-07-29 07:05 | Emergency (ER) | payer OTHER ==
[~2021-07-29] VITALS: Ht 170.2 cm; Wt 104.5 kg
[2021-07-29 07:59] LABS: BILIRUBIN,URINE NEGATIVE (NEG); CLARITY,URINE CLOUDY; COLOR,URINE YELLOW; NITRITE,URINE NEGATIVE (NEG); PH,URINE 6.5 (<5.0-8.0); PROTEIN,URINE NEGATIVE (NEG-TRACE); UROBILINOGEN,URINE 0.2 mg/dL (0.2 mg/dL)
[2021-07-29] MEDS ORDERED: IV NORMAL SALINE 1000ML BAG 1,000 ML IV ONE (08:00)
--- NOTE | 2021-07-29 08:14 | PHYS DOC ---
Past Medical History Past Medical History: Anxiety, Asthma, Depression Past Surgical History: Appendectomy, Cholecystectomy, Tubal ligation Smoking Status: Former Smoker Alcohol Use: Occasionally Drug Use: None General Adult EDM: Chief Complaint: Palpitations HPI: HPI: Patient is a 30 year old [f__sex] who presents with [] Review of Systems: Review of Systems: Constitutional: Denies fever or chills Eyes: Denies redness or eye pain HENT: Denies nasal congestion or sore throat Respiratory: Denies cough or shortness of breath Cardiovascular: Denies chest pain or palpitations GI: Denies abdominal pain, nausea, or vomiting : Denies dysuria or hematuria Musculoskeletal: Denies back pain or joint pain Integument: Denies rash or skin lesions Neurologic: Denies headache, focal weakness or sensory changes Complete systems were reviewed and found to be within normal limits, except as documented in this note. Heart Score: C/O Chest Pain: N/A Current Medications: Current Medications Medications (Trade) Dose Ordered Sig/Ada Start Time Stop Time Status Last Admin Dose Admin Sodium Chloride 1,000 ml @ 1,000 mls/hr 1X ONCE 07/29/21 08:00 07/29/21 08:59 Allergies: Allergies: Allergies Coded Allergies Type Severity Reaction Last Updated Verified tramadol Allergy Intermediate Itching 02/16/17 Yes fentanyl Allergy Unknown Shortness of Air 02/01/20 Yes Physical Exam: PE: Constitutional: Well developed, well nourished, no acute distress, non-toxic appearance HENT: Normocephalic, atraumatic Eyes: PERRL, EOMI, conjunctiva normal, no discharge Neck: Normal range of motion, no tenderness, supple Lungs & Thorax: No respiratory distress, equal chest rise and fall Abdomen: Soft, no tenderness Skin: Warm, dry, no erythema, no rash Back: No tenderness, no CVA tenderness Extremities: No tenderness, ROM intact, no edema Neurologic: Alert and oriented X 3, normal motor function, normal sensory function, no focal deficits noted Psychologic: Affect normal, judgment normal Current Patient Data: Labs: Laboratory Tests Test 07/29/21 07:38 POC Urine HCG, Qualitative Hcg negative (Negative) Vital Signs: Vital Signs Date Time Temp Pulse Resp B/P (MAP) Pulse Ox O2 Delivery O2 Flow Rate FiO2 07/29/21 07:33 98.3 83 17 156/80 (105) 100 Room Air 98.3 EKG: EKG: @0740 NSR at 80bpm, NO ST elevation, QRS 80ms, QT/QTc 370/430ms Radiology/Procedures: Radiology/Procedures: PROCEDURE: CHEST AP ONLY EXAM: XR CHEST 1V 07/29/2021 7:59 AM CLINICAL INDICATION: Palpitations, shortness of air, Covid COMPARISON: Chest radiograph 03/21/2020 TECHNIQUE: AP upright view of the chest FINDINGS: The heart and mediastinum are normal. Lungs are well-expanded and clear. No consolidation, pleural effusion, or pneumothorax. No acute osseous abnormality. IMPRESSION: Normal chest radiograph. Electronically signed by: Annie Florian MD (07/29/2021 8:16 AM) [id number] Course & Med Decision Making: Course & Med Decision Making Pertinent Labs and Imaging studies reviewed. (See chart for details) [] Dragon Disclaimer: Dragon Disclaimer: This electronic medical record was generated, in whole or in part, using a voice recognition dictation system. Departure Departure Impression: Primary Impression: Palpitations Disposition: 01 HOME / SELF CARE / HOMELESS Condition: STABLE Referrals: NO PCP (PCP) LUI ARMANDO MD Patient Instructions: Palpitations, [id number] ALIRIO COBB DO Jul 29, 2021 08:14
--- NOTE | 2021-07-29 08:18 | RAD ---
EXAM: XR CHEST 1V 07/29/2021 7:59 AM CLINICAL INDICATION: Palpitations, shortness of air, Covid COMPARISON: Chest radiograph 03/21/2020 TECHNIQUE: AP upright view of the chest FINDINGS: The heart and mediastinum are normal. Lungs are well-expanded and clear. No consolidation, pleural effusion, or pneumothorax. No acute osseous abnormality. IMPRESSION: Normal chest radiograph. Electronically signed by: Annie Florian MD (07/29/2021 8:16 AM) [id number]
[2021-07-29 08:27] LABS: BACTERIA,URINE MANY /HPF (0-FEW); RBC,URINE 0 /HPF (0-2); WBC,URINE 0 /HPF (0-4)
[2021-07-29 08:34] LABS: BASO % 0 % (0-3); EOS # 0.2 x10^3/uL (0.0-0.7); EOS % 3 % (0-3); HEMATOCRIT 38.8 % (36.0-47.0); HEMOGLOBIN 13.3 g/dL (12.0-15.5); LYMPH # 1.9 x10^3/uL (1.0-4.8); LYMPH % 29 % (24-48); MEAN CORPUSCULAR HEMOGLOBIN 26 pg (25-35); MEAN CORPUSCULAR HGB CONC 34 g/dL (31-37); MEAN CORPUSCULAR VOLUME 77 fL (79-100); MONO # 0.4 x10^3/uL (0.0-1.1); MONO % 7 % (0-9); NEUT # 3.9 x10^3/uL (1.8-7.7); NEUT % 61 % (31-73); PLATELET COUNT 260 x10^3/uL (140-400); RED BLOOD COUNT 5.04 x10^6/uL (3.50-5.40); RED CELL DISTRIBUTION WIDTH 14.1 % (11.5-14.5); WHITE BLOOD COUNT 6.5 x10^3/uL (4.0-11.0)
[2021-07-29 08:43] LABS: CALCIUM 8.7 mg/dL (8.5-10.1); CREATININE 0.9 mg/dL (0.6-1.0); GFR 73.5; POTASSIUM 4.2 mmol/L (3.5-5.1)
[2021-07-29 08:49] LABS: ALBUMIN 3.4 g/dL (3.4-5.0); ALBUMIN/GLOBULIN RATIO 0.9 (1.0-1.7); MAGNESIUM 1.8 mg/dL (1.8-2.4); TOTAL BILIRUBIN 0.3 mg/dL (0.2-1.0); TOTAL PROTEIN 7.2 g/dL (6.4-8.2)
[2021-07-29 08:59] LABS: FREE T4 0.85 ng/dL (0.76-1.46); THYROID STIM HORMONE (TSH) 1.494 uIU/mL (0.358-3.74)
[2021-07-29 09:03] LABS: CREATINE KINASE 61 U/L (26-192)
[2021-07-29 10:13] VITALS: BP 104/61
--- NOTE | 2021-07-29 16:02 | NUR ---
IP: Attempted to notify patient of negative COVID19 test result. Voicemail message left to please return call at number provided.
--- NOTE | 2021-07-29 16:15 | NUR ---
IP: Patient returned call. Notified of negative COVID19 test result. Verbalized understanding.
== END 2021-07-29 11:55 | disposition home or self-care (01) ==
LOC: ER 07:05
DX: R00.2 Palpitations (principal); Z20.822 Contact with and (suspected) exposure to COVID-19; J45.909 Unspecified asthma, uncomplicated; Z87.891 Personal history of nicotine dependence; Z88.4 Allergy status to anesthetic agent; Z88.6 Allergy status to analgesic agent
CPT/HCPCS: 36415; 71045; 80053; 81001; 81025; 82553; 83735; 84439; 84443; 84481; 84484; 85025; 85379; 87086; 96360; 99285; J7030; U0003; U0005